=== PATIENT | male | born 1985 ===

== ENCOUNTER 2020-01-30 19:45 | Emergency (ER) | payer MEDICAID, SELFPAY ==
[2020-01-30 19:54] VITALS: BP 131/85; PULSE 92; RESP 16; TEMP 37.3; O2SAT 99; BMI 31.1
--- NOTE | 2020-01-30 21:28 | ECG_ITS ---
Test Reason : ANXIETY Blood Pressure : / mmHG Vent. Rate : 067 BPM Atrial Rate : 067 BPM P-R Int : 130 ms QRS Dur : 088 ms QT Int : 392 ms P-R-T Axes : 051 049 038 degrees QTc Int : 414 ms Normal sinus rhythm with sinus arrhythmia RSR' or QR pattern in V1 suggests right ventricular conduction delay Otherwise normal ECG When compared with ECG of 20-APR-2018 12:17, No significant change was found Referred By: Vicente Garay Electronically Signed By:OLIVERIO THOMAS MD
[2020-01-30] MEDS: chlordiazePOXIDE HCl 25 MG CAPSULE 50 MG PO (21:47)
--- NOTE | 2020-01-30 21:53 | PC.NURSE ---
LABS BEING OBTAINED AT THIS TIME. MEDICATED ORDERED WITH LIBRIUM. WILL CONTINUE TO MONITOR.
[2020-01-30 22:00] VITALS: BP 120/77; PULSE 77; RESP 14; TEMP 37.1
[2020-01-30 22:04] LABS: Basophils Percent Auto 0.3 % (0-2); Eosinophils Absolute Auto 0.1 X10*3/uL (0.0-0.4); Eosinophils Percent Auto 1.7 % (0-4); Hematocrit 44.6 % (42-52); Hemoglobin 15.4 g/dl (14.0-18.0); Imm Gran Abs Auto 0.01 X10*3/uL (0.00-0.03); Imm Gran Pct Auto 0.2 % (0.0-0.4); Lymphocytes Absolute Auto 2.2 X10*3/uL (1.2-4.9); Lymphocytes Percent Auto 36.9 % (20-40); Mean Corpuscular HGB Conc 34.5 g/dl (31.0-36.0); Mean Platelet Volume 11.3 fL (9.4-12.4); Monocytes Absolute Auto 0.4 X10*3/uL (0.1-1.2); Monocytes Percent Auto 6.7 % (2-11); Neutrophils Absolute Auto 3.2 X10*3/uL (2.0-8.3); Neutrophils Percent Auto 54.2 % (45-73); Platelet Count 247 X10*3/uL (160-400); Red Blood Count 5.31 X10*6/uL (4.60-5.80); Red Cell Distribution Width 12.3 % (11.0-16.0); White Blood Count 5.9 X10*3/uL (4.8-10.8)
[2020-01-30 22:05] LABS: MANUAL DIFF FLAG NO
[2020-01-30 22:31] LABS: Alanine Aminotransferase 66 U/L (0-40); Albumin Level 4.7 g/dL (3.5-5.0); Alkaline Phosphatase 98 U/L (39-117); Anion Gap 13 (12-20); Aspartate Amino Transferase 37 U/L (5-37); Bilirubin Total 0.6 mg/dL (0.0-1.0); Blood Urea Nitrogen 10 mg/dL (9-16); Calcium 9.7 mg/dL (8.4-10.2); Carbon Dioxide 25 mmol/L (22-29); Chloride 102 mmol/L (96-108); Creatinine Clr Calc Pharmacy 116.6; Estimated Glomerular Filt Rate > 60; Glucose Random 84 mg/dL (60-115); Potassium 4.1 mmol/l (3.3-5.1); Sodium 136 mmol/L (135-145); Total Protein 7.2 g/dL (6.5-8.0)
[2020-01-30 22:34] LABS: Troponin-I High Sensitivity < 3.5 ng/L (<3.5-35.0)
--- NOTE | 2020-01-30 22:48 | ED.GENADULT ---
HPI - General Adult General Chief complaint: Anxiety Stated complaint: Anxiety Time Seen by Provider: 01/30/20 21:19 Source: patient Mode of arrival: ambulatory Limitations: no limitations History of Present Illness HPI narrative: patient presents to ED for palpitations and night sweats and mild shaking of extremities and feeling anxious since having last drink 3 nights ago. patient states has tried to go cold turkey in the past. patient he has stopped drinking. Patient states usually he drinks half a pint a day. Patient presently denies any chest pain, shortness of breath, coughing, fever, chills, chest pain on inspiration, Related Data Previous Rx's Medication Instructions Recorded chlordiazepoxide HCl 50 mg PO Q8H PRN #11 cap 01/31/20 Allergies Allergy/AdvReac Type Severity Reaction Status Date / Time No Known Allergies Allergy Verified 01/31/20 00:01 Review of Systems Review of Systems: Yes all other systems are reviewed and are negative Constitutional: Constitutional: Reports as per HPI and Reports no additional constitutional complaints Eyes: Eyes: Reports as per HPI and Reports no additional eye complaints ENT: Reports system reviewed and no additional complaints, except as documented and Reports as per HPI Cardiovascular: Cardiovascular: Reports as per HPI, Reports no additional cardiovascular complaints, Denies chest pain, Denies chest pain at rest, Denies chest pain with activity, Denies Epigastric Pain, Denies dyspnea, Denies dyspnea on exertion, Denies orthopnea and Denies paroxysmal nocturnal dyspnea Comments: palpitation Respiratory: Respiratory: Reports as per HPI, Reports no additional respiratory complaints, Denies dyspnea and Denies dyspnea on exertion Gastrointestinal: Gastrointestinal: Reports as per HPI and Reports no additional gastrointestinal complaints Musculoskeletal: Musculoskeletal: Reports no additional musculoskeletal complaints and Reports as per HPI Neurologic: Reports system reviewed and no additional complaints, except as documented and Reports as per HPI Psychiatric: Psychiatric: Reports no additional psychiatric complaints and Reports as per HPI Endocrine: Endocrine: Reports no additional endocrine complaints and Reports as per HPI PMF Past Medical History Medical History (Updated 01/30/20 @ 23:51 by UMESH Davis) Agoraphobia Anxiety Chronic back pain Depression Migraine Surgical History (Updated 01/30/20 @ 19:58 by Barbara Flowers) Hx of removal of cyst Social History Social History Advance Directives: No Physical Exam Vital Signs: Vital Signs: Last Vital Signs Temp 98.8 F 01/30/20 22:00 Pulse 77 01/30/20 22:00 Resp 14 01/30/20 22:00 BP 120/77 01/30/20 22:00 Pulse Ox 99 01/30/20 19:54 Body Mass Index 31.1 Const: General: cooperative, healthy appearing, comfortable, no acute distress, well developed, alert and awake Orientation/consciousness: patient oriented x3 HENMT: Head: Yes normal to inspection and Yes No palpable skull fracture present Eyes: General: appearance normal, both eyes and all related structures Neck: Neck: Yes normal visual inspection, Yes full ROM, Yes no lymphadenopathy, Yes no meningeal signs, Yes trachea midline, Yes supple and No tender Chest: Chest palpation & inspection: normal inspection of the chest, normal palpation of entire chest wall and no localized rib tenderness Resp: Effort & Inspection: normal respiratory effort and able to speak in complete sentences Cardio: Jugular venous distension: no JVD Heart sounds: S1 normal heart sound present and S2 normal heart sound present GI: Inspection: Yes normal to inspection and No abdominal wall ecchymosis : General: Yes CVA tenderness and Yes no CVA tenderness Back/Spine/Pelvis: Back: no CVA tenderness, CVA tenderness and No back tenderness Skin: General skin exam: no rashes or lesions noted Neuro: General: patient oriented x3, gait normal, no meningeal signs and CN's II-XI intact bilaterally Cranial nerves: Yes CN's II-XII intact bilaterally Extrem: Other: presently patient is not having any tremors. Psych: Other: Anxious Appearance: grossly normal and well kempt Course Course Course Narrative: history physical exam indicate slight alcohol withdrawal. Due to due to patient's history of alcohol abuse and not having a drink within the past 3 days he will have EKG does not make sure is not in atrial fibrillation to indicate holiday heart. Patient will also have troponin make sure not LA after 3 days of tremors & heart palpitations. Patient denies ever having chest pain. Patient presently denies having chest pain in the ED. No indication for chest x-ray. not suspecting PE. Patient will be given Librium Reevaluation(s) Reevaluation #1: patient's troponin is negative. Patient's EKG is normal and negative for atrial fibrillation. Patient labs normal. Patient feels better after receiving librium. Time: 21:55 Reevaluation #2: patient magnesium came back normal. Patient given list of detox program to call to get treatment for alcohol abuse. Patient presently safe for discharge. Patient prescribed librium. Vital signs stable. Time: 23:49 Medical Decision Making MDM Narrative Medical decision making narrative: palpitations. Alcohol withdrawal Lab Data Result diagrams: 01/30/20 21:55 01/30/20 21:55 Labs: Lab Results 01/30/20 01/30/20 01/30/20 Range/Units 21:55 21:55 21:55 WBC 5.9 (4.8-10.8) X10*3/uL RBC 5.31 (4.60-5.80) X10*6/uL Hgb 15.4 (14.0-18.0) g/dl Hct 44.6 (42-52) % MCV 84.0 (80-98) fL MCH 29.0 (27.0-33.0) pg MCHC 34.5 (31.0-36.0) g/dl RDW 12.3 (11.0-16.0) % Plt Count 247 (160-400) X10*3/uL MPV 11.3 (9.4-12.4) fL Immature Gran % (Auto) 0.2 (0.0-0.4) % Neut % (Auto) 54.2 (45-73) % Lymph % (Auto) 36.9 (20-40) % Mcintosh % (Auto) 6.7 (2-11) % Eos % (Auto) 1.7 (0-4) % Baso % (Auto) 0.3 (0-2) % Lymph # (Auto) 2.2 (1.2-4.9) X10*3/uL Mcintosh # (Auto) 0.4 (0.1-1.2) X10*3/uL Eos # (Auto) 0.1 (0.0-0.4) X10*3/uL Baso # (Auto) 0.0 (0.0-0.2) X10*3/uL Abs Immat Gran (auto) 0.01 (0.00-0.03) X10*3/uL Absolute Neuts (auto) 3.2 (2.0-8.3) X10*3/uL Absolute Nucleated RBC 0.000 (0.0-0.012) X10*3/uL Nucleated RBC % (auto) 0.0 (0.0-0.2) /100WBC Sodium 136 (135-145) mmol/L Potassium 4.1 (3.3-5.1) mmol/l Chloride 102 (96-108) mmol/L Carbon Dioxide 25 (22-29) mmol/L Anion Gap 13 (12-20) BUN 10 (9-16) mg/dL Creatinine 0.81 (0.5-1.4) mg/dL Estim Creat Clear Calc 116.6 Estimated GFR > 60 Random Glucose 84 (60-115) mg/dL Calcium 9.7 (8.4-10.2) mg/dL Magnesium 2.2 (1.6-2.6) mg/dL Total Bilirubin 0.6 (0.0-1.0) mg/dL AST 37 (5-37) U/L ALT 66 H (0-40) U/L Alkaline Phosphatase 98 (39-117) U/L Troponin I High Sens < 3.5 (<3.5-35.0) ng/L Total Protein 7.2 (6.5-8.0) g/dL Albumin 4.7 (3.5-5.0) g/dL ECG Data Interpretation: normal sinus rhythm. Normal EKG. Ventricular rate 67. Pr interval 130. QRS 88. QTC 414 Discharge Plan Discharge Clinical Impression: Heart palpitations, Alcohol withdrawal Patient Disposition: Home, Self-Care Instructions: Heart Palpitations (ED), Alcohol Withdrawal (ED) Additional Instructions: return to ED for any chest pain, shortness of breath, fever, chills, severe tremors of extremities, nausea, vomiting, diarrhea, any other concerning symptoms. Please follow-up with any detox center on list I gave you for follow-up Prescriptions: New chlordiazepoxide HCl 25 mg capsule 50 mg PO Q8H PRN (Reason: alcohol withdrawal) Qty: 11 RF: 0 Interventions: ED Discharge Assessment Last Done: 01/30/20 23:53 Discharge Date/Time: 01/31/20 00:00 Print Language: Chinese
[2020-01-30 23:21] LABS: Magnesium 2.2 mg/dL (1.6-2.6)
== END 2020-01-31 | disposition home or self-care (01) ==
PROVIDERS: Physician Assistant; Emergency Provider Internal Medicine; PCP Family Medicine
DX: F10.239 Alcohol dependence with withdrawal, unspecified (principal); R00.2 Palpitations; F41.1 Generalized anxiety disorder; F43.0 Acute stress reaction; Y90.9 Presence of alcohol in blood, level not specified; Z79.899 Other long term (current) drug therapy
CPT/HCPCS: 36415; 80053; 83735; 84484; 85025; 93005; 99283

== ENCOUNTER 2020-06-25 23:23 | Emergency (ER) | payer MEDICAID, SELFPAY ==
[2020-06-25 23:59] VITALS: BP 114/68; PULSE 88; RESP 16; TEMP 37.2; O2SAT 98; BMI 30.5
--- NOTE | 2020-06-26 00:12 | ED.DENTAL ---
HPI - Dental/Oral General Chief complaint: Dental/Oral Stated complaint: DENTAL PAIN Time Seen by Provider: 06/26/20 00:03 Source: patient Mode of arrival: ambulatory Limitations: no limitations History of Present Illness HPI Narrative: 35-year-old male presents with dental pain and multiple caries. States that has had multiple appointments for tooth extraction however was unable to make it because of COVID-19. He has been taking Motrin 800 mg every 6 hours, Tylenol a 1000 mg every 8 hours, Orajel, has been using mouthwash to help with pain all with poor effect. He does have an appointment on Friday with oral surgery. He has pain when eating or drinking, is able to open and close his mouth without difficulty, and able to swallow secretions. He denies fevers, chills, throat pain, change in voice, ear pain, eye pain, chest pain or pressure, palpitations, shortness breath, abdominal pain, abdominal distention, dysuria, hematuria, and any other concerning symptoms. MD Complaint: tooth pain Onset (ago): week(s) Duration: constant Severity: severe Severity scale (1-10): 10 Relieving factors: NSAIDs Exacerbating factors: chewing, cold, heat and drinking fluids Context: history of dental caries and poor dental care Associated symptoms: gum swelling Treatment prior to arrival: topical analgesic and oral analgesic Related Data Previous Rx's Medication Instructions Recorded chlordiazepoxide HCl 50 mg PO Q8H PRN #11 cap 01/31/20 amoxicillin-pot clavulanate 1 tab PO Q12H 10 Days #20 tab 06/26/20 [Augmentin] oxycodone 5 mg PO Q8H PRN #7 tab 06/26/20 Allergies Allergy/AdvReac Type Severity Reaction Status Date / Time No Known Allergies Allergy Verified 01/31/20 00:01 Review of Systems Review of Systems: Constitutional: No Fever, No Chills ENT/Mouth: No swallowing difficulty, no change in voice, positive dental pain, positive jaw pain, positive facial swelling Eyes: No Eye Pain, No Swelling Cardiovascular: No Chest Pain, No SOB Respiratory: No Cough, No Sputum, No Wheezing, No Smoke Exposure, No Dyspnea Gastrointestinal: No Nausea, No Vomiting, No Diarrhea Genitourinary: No Dysuria Musculoskeletal: No Myalgias Skin: No rash Neuro: No Weakness, No Numbness, No Headache Yes all other systems are reviewed and are negative [facility] Past Medical History Attestation statement: The following information was validated with the patient. Source: old records reviewed Medical History (Updated 06/26/20 @ 00:11 by Betty Cota NP) Agoraphobia Anxiety Chronic back pain Depression Migraine Surgical History Hx of removal of cyst Social History Social History Advance Directives: No Advance Directives Information Provided: No Physical Exam Vital Signs: Vital Signs: Last Vital Signs Temp 98.9 F 06/25/20 23:59 Pulse 88 06/25/20 23:59 Resp 16 06/25/20 23:59 BP 114/68 06/25/20 23:59 Pulse Ox 98 06/25/20 23:59 Body Mass Index 30.5 Appearance: Alert. Oriented X3. Moderate distress. Eyes: Pupils equal, round and reactive to light. ENT: Pharynx normal. Multiple dental caries visible pulp inside the broken molars on the right lower jaw. Neck: Normal inspection. Neck supple. No lymphadenopathy noted. CVS: Normal heart rate and rhythm. Pulses normal. Respiratory: No respiratory distress. Lung sounds clear to auscultation all lobes. Abdomen: Soft and nontender. Skin: Skin warm and dry. Normal skin color. Normal skin turgor. Extremities: No lower extremity edema. Moves all extremities against resistance, gait well balanced well coordinated. Neuro: No motor deficit. No sensory deficit. Cranial nerves 2-12 intact. Course Course Course Narrative: 35-year-old male presents with multiple dental caries and abscess. Has been taking an excessive amount of [id number] over the past several days, patient educated on proper dosage of Tylenol and Motrin. Will give narcotic analgesic and Augmentin. Patient will follow up with his oral surgeon on Friday. Patient verbalized understanding of and agrees plan of care discharge home. MDM - Dental/Oral Differential Diagnosis Differential diagnosis: Likely gingival abscess, dental caries, toothache and dental abscess Medical Records Attestation: I reviewed the patient's medical records. Discharge Plan Discharge Clinical Impression: Toothache, Dental caries Patient Disposition: Home, Self-Care Instructions: Dental Abscess (ED), Toothache (ED) Additional Instructions: You were evaluated for dental caries in tooth ache. Please follow-up with dental surgery tomorrow. I prescribed oxycodone for pain management. This medication is a narcotic and has high risk for addiction and abuse. Do not drive or operate machinery while taking this medication. This medication can increase risk for falls, cause drowsiness, and constipation. Drink plenty of fluids, use MiraLax and Colace as needed for stool softening. Please take her Augmentin as prescribed. This medication is an antibiotic. Thank you for choosing this emergency department for evaluation. Please follow-up with primary care physician as needed. Return to the emergency department for any new, concerning, or worsening symptoms. Prescriptions: New oxycodone 5 mg tablet 5 mg PO Q8H PRN (Reason: pain) Qty: 7 RF: 0 amoxicillin-pot clavulanate [Augmentin] 875-125 mg tablet 1 tab PO Q12H 10 Days Qty: 20 RF: 0 No Action chlordiazepoxide HCl 25 mg capsule 50 mg PO Q8H PRN (Reason: alcohol withdrawal) Qty: 11 RF: 0 Interventions: ED Discharge Assessment Last Done: 06/26/20 01:05 Discharge Date/Time: 06/26/20 01:06
[2020-06-26] MEDS: oxyCODONE HCl Immed Release 5 MG TABLET PO (01:04)
[2020-06-26] MEDS: Amoxicillin/Potassium Clav 875 MG TABLET PO (01:04)
== END 2020-06-26 01:06 | disposition home or self-care (01) ==
PROVIDERS: Emergency Provider Emergency Medicine; PCP Family Medicine
DX: K02.9 Dental caries, unspecified (principal); Z79.899 Other long term (current) drug therapy
CPT/HCPCS: 99283

== ENCOUNTER 2020-11-08 22:50 | Emergency (ER) | payer MEDICAID, SELFPAY ==
[2020-11-08 22:55] VITALS: BP 127/90; PULSE 81; RESP 16; TEMP 36.2; O2SAT 98; BMI 29.2
--- NOTE | 2020-11-08 23:08 | ED.GENADULT ---
HPI - General Adult General Chief complaint: General Medical Stated complaint: Alcohol withdrawals Time Seen by Provider: 11/08/20 23:08 Source: patient Mode of arrival: ambulatory Limitations: no limitations History of Present Illness HPI narrative: Patient alcoholic drinks beer never been to detox. Had lot of beer 3 days ago none for last 3 days feel anxious and in withdrawal unable to eat much no vomiting denies any hallucination or delusion. Patient also have a history of anxiety Related Data Previous Rx's Medication Instructions Recorded chlordiazepoxide HCl 25 mg capsule 50 mg PO Q8H PRN #11 cap 01/31/20 amoxicillin 875 mg-potassium 1 tab PO Q12H 10 Days #20 tab 06/26/20 clavulanate 125 mg tablet (Augmentin) oxycodone 5 mg tablet 5 mg PO Q8H PRN #7 tab 06/26/20 chlordiazepoxide HCl 25 mg capsule 25 mg PO Q8H #14 cap 11/08/20 Allergies Allergy/AdvReac Type Severity Reaction Status Date / Time No Known Allergies Allergy Verified 01/31/20 00:01 Review of Systems Review of Systems: Constitutional : No Weight loss, No Fever, No Chills ENT/Mouth : No sore throat, No Rhinorrhea Eyes: No Eye Pain, No Swelling Cardiovascular : No Chest Pain, no palpitations Respiratory : No Cough, No Sputum, no shortness of breath Gastrointestinal : + Nausea, No Vomiting, No Diarrhea, No abdominal Pain, no black stools Genitourinary : No Dysuria, No Urinary Frequency Musculoskeletal : No joint pain, No Myalgias, No Joint Swelling Skin : No Skin Lesions, No rash Neuro : No Weakness, No Numbness, No Dizziness, No Headache Psych : ++ Anxiety/Panic, No Depression Heme/Lymph: No Bruising, No Lymphadenopathy Endocrine : No Polyuria, No Polydipsia All other systems reviewed and are negative [facility] Past Medical History Medical History Agoraphobia Anxiety Chronic back pain Depression Migraine Surgical History Hx of removal of cyst Social History Social History Advance Directives: No Advance Directives Information Provided: Yes Physical Exam Vital Signs: Vital Signs: Last Vital Signs Temp 97.2 F 11/08/20 22:55 Pulse 81 11/08/20 22:55 Resp 16 11/08/20 22:55 BP 127/90 H 11/08/20 22:55 Pulse Ox 98 11/08/20 22:55 Body Mass Index 29.2 Appearance: Alert. Oriented X3. No acute distress. Anxious Eyes: PERRLA, No Nystagmus ENT: Pharynx normal. Oral Mucosa moist Neck: Normal inspection. Neck supple. CVS: Normal heart rate and rhythm. Pulses normal. Respiratory: No respiratory distress. Equal air entry bilateral, no wheezing/rales/rhonchi Abdomen: Soft and nontender. Bowel sounds are present, no mass palpable, no CVA tenderness Skin: Skin warm and dry. Normal skin color. Normal skin turgor. Extremities: No lower extremity edema. No calf tenderness Neuro: Oriented X 3. No motor deficit. No sensory deficit.No cerebellar signs , cranial nerves II-XII intact Medical Decision Making MDM Narrative Medical decision making narrative: Patient had p.o. fluids and food in the ER feel better after Librium will discharge patient home advised to follow-up with detox Discharge Plan Discharge Clinical Impression: Alcohol withdrawal Qualifiers: Complication of substance-induced condition: uncomplicated Qualified Code(s): F10.230 - Alcohol dependence with withdrawal, uncomplicated Patient Disposition: Home, Self-Care Instructions: Alcohol Withdrawal (ED) Additional Instructions: Drink plenty of fluids Librium as advised and follow up with detox Prescriptions: New chlordiazepoxide HCl 25 mg capsule 25 mg PO Q8H Qty: 14 RF: 0 No Action chlordiazepoxide HCl 25 mg capsule 50 mg PO Q8H PRN (Reason: alcohol withdrawal) Qty: 11 RF: 0 oxycodone 5 mg tablet 5 mg PO Q8H PRN (Reason: pain) Qty: 7 RF: 0 amoxicillin-pot clavulanate [Augmentin] 875-125 mg tablet 1 tab PO Q12H 10 Days Qty: 20 RF: 0
[2020-11-08] MEDS: chlordiazePOXIDE HCl 25 MG CAPSULE 50 MG PO (23:24)
== END 2020-11-09 00:27 | disposition home or self-care (01) ==
PROVIDERS: Emergency Provider Internal Medicine; PCP Family Medicine
DX: F41.9 Anxiety disorder, unspecified (principal); F10.230 Alcohol dependence with withdrawal, uncomplicated; Y90.9 Presence of alcohol in blood, level not specified; Z79.899 Other long term (current) drug therapy
CPT/HCPCS: 99283; 99284

== ENCOUNTER 2022-07-09 01:36 | Emergency (ER) | payer MEDICAID, SELFPAY ==
--- NOTE | 2022-07-09 | ECG_ITS ---
Test Reason : allergic reaction Blood Pressure : / mmHG Vent. Rate : 085 BPM Atrial Rate : 085 BPM P-R Int : 130 ms QRS Dur : 082 ms QT Int : 358 ms P-R-T Axes : 077 059 050 degrees QTc Int : 426 ms Normal sinus rhythm Normal ECG When compared with ECG of 30-JAN-2020 22:04, No significant change was found Referred By: Generic ED Physician Electronically Signed By:ADALID GARG MD
--- NOTE | 2022-07-09 01:44 | ED.ALLEREA ---
HPI - Allergic Reaction General Stated complaint: allergic reaction Time Seen by Provider: 07/09/22 01:44 Source: patient Mode of arrival: EMS Limitations: no limitations History of Present Illness HPI narrative: Patient comes to the emergency room complaining of an allergic reaction to Motrin. Patient states that he takes Motrin for muscular pain on his chest. Today, around 22:00, patient took ibuprofen, minutes after patient started complaining foreign body sensation in his throat, hives in upper lower extremities. Patient was able to take 12.5 mg of Benadryl. And called 911. Related Data Previous Rx's Medication Instructions Recorded chlordiazepoxide HCl 25 mg capsule 50 mg PO Q8H PRN alcohol 01/31/20 withdrawal #11 caps amoxicillin 875 mg-potassium 1 tab PO Q12H 10 days #20 tabs 06/26/20 clavulanate 125 mg tablet (Augmentin) oxycodone 5 mg tablet 5 mg PO Q8H PRN pain #7 tabs 06/26/20 chlordiazepoxide HCl 25 mg capsule 25 mg PO Q8H #14 caps 11/08/20 Allergies Allergy/AdvReac Type Severity Reaction Status Date / Time No Known Allergies Allergy Verified 01/31/20 00:01 Review of Systems Review of Systems: Constitutional : No Weight loss, No Fever, No Chills, No Night Sweats, No Fatigue, No Malaise ENT/Mouth : Complaining of difficulty swallowing and foreign body sensation, No Hearing loss, No Ear Pain, No Nasal Congestion, No Sinus Pain, No Hoarseness, No sore throat, No Rhinorrhea, Eyes: No Eye Pain, No Swelling, No Redness, No Foreign Body, No Discharge, No Vision Changes Cardiovascular : No Chest Pain, No SOB, No Dyspnea on Exertion, No Orthopnea, No Edema, No Palpitations Respiratory : No Cough, No Sputum, No Wheezing, No Smoke Exposure, No Dyspnea Gastrointestinal : No Nausea, No Vomiting, No Diarrhea, No Constipation, No abdominal Pain, No Hematochezia, No Melena Genitourinary : no irregular bleeding, No Dysuria, No Urinary Frequency, No Hematuria, No Urinary Incontinence, No Urgency, No Flank Pain, No Urinary Flow Changes, No Hesitancy Musculoskeletal : No joint pain, No Myalgias, No Joint Swelling Skin : Complaining of hives in upper lower extremities Neuro : No Weakness, No Numbness, No Paresthesias, No Loss of Consciousness, No Dizziness, No Headache Psych : No Anxiety/Panic, No Depression, No SI/HI/AH/VH, No Social Issues, Heme/Lymph: No Bruising, No Bleeding,No Lymphadenopathy Endocrine : No Polyuria, No Polydipsia, No Temperature Intolerance [facility] Past Medical History Medical History Agoraphobia Anxiety Chronic back pain Depression Migraine Surgical History Hx of removal of cyst Physical Exam ED Const Other: Appearance: Alert. Oriented X3. No acute distress. Eyes: Pupils equal, round and reactive to light. ENT: Pharynx normal. Neck: Normal inspection. Neck supple. No lymph nodes noted. No crepitus CVS: Normal heart rate and rhythm. Pulses normal. Normal S1 and S2 Respiratory: No respiratory distress. Breath sounds normal. No Wheezing. No rales Abdomen: Soft and nontender. No rigidity. No distention. Skin: Skin warm and dry. Normal skin color. Normal skin turgor. Extremities: No lower extremity edema. No Lacerations. No Rash Neuro: Oriented X 3. No motor deficit. No sensory deficit. Moving all extremities. No slurred speech. CN 2 through 12 grossly intact Psych: calm, cooperative, normal affect Course Course Course Narrative: -on arrival, patient speaking in full sentences, no angioedema, no hives. -patient receiving 1 dose of IV Solu-Medrol, Pepcid, Benadryl and IV fluids -anticipating patient to go home. At this time, patient is stable -sign-out given to Dr. Kingsley Medical Decision Making Differential Diagnosis Differential Diagnoses: The differential diagnosis associated with the presentation includes (Allergic reaction, angioedema) Critical Care Time Critical Care Time Critical Care Time: Yes Total Critical Care Time: 30 Attestation: I have personally provided critical care time. Time includes review of lab data, radiology results, discussion with consultants, and monitoring for potential decompensation. Intervention performed as documented. Discharge Plan Discharge Clinical Impression: Allergic reaction Patient Disposition: Home, Self-Care Instructions: General Allergic Reaction (ED) Additional Instructions: Please follow-up with your primary care physician tomorrow. If you have any worsening or new symptoms, please return to the emergency room or call 911 Prescriptions: No Action chlordiazepoxide HCl 25 mg capsule 50 mg PO Q8H PRN (Reason: alcohol withdrawal) Qty: 11 0RF Rx Instructions: day 1 take 50 mg b.i.d.. Day 2 take 25 mg every 6 hours. states 3 take 25 mg b.i.d. day 4 take 25 mg at bedtime chlordiazepoxide HCl 25 mg capsule 25 mg PO Q8H Qty: 14 0RF oxycodone 5 mg tablet 5 mg PO Q8H PRN (Reason: pain) Qty: 7 0RF amoxicillin-pot clavulanate [Augmentin] 875-125 mg tablet 1 tab PO Q12H 10 Days Qty: 20 0RF
[2022-07-09 01:45] VITALS: BP 121/77; PULSE 92; RESP 10; TEMP 36.6; O2SAT 99
[2022-07-09 01:49] VITALS: BP 121/77; BP 142/80; PULSE 88; RESP 16; TEMP 36.6; O2SAT 99; BMI 22.9
[2022-07-09] MEDS: 0.9 % Sodium Chloride 1,000 ML 999 ML IVCONT (02:09)
[2022-07-09] MEDS: diphenhydrAMINE HCL 50 MG/ML VIAL IVPUSH (02:10)
[2022-07-09] MEDS: Famotidine/PF 20 MG/2 ML VIAL IVPUSH (02:10)
[2022-07-09] MEDS: methylPREDNISolone Sod Succ 125 MG/2 ML VIAL IVPUSH (02:10)
[2022-07-09 03:29] VITALS: BP 107/60; PULSE 99; RESP 12; TEMP 36.8; O2SAT 98
--- NOTE | 2022-07-09 04:00 | PC.NURSE ---
pt a&o, no sob or chest pain, no hives, no facial swelling, pt able to speak in full sentence, no sign of distress. Reviewed discharge instructions. pt verbalized understanding.
== END 2022-07-09 04:01 | disposition home or self-care (01) ==
PROVIDERS: Emergency Provider Emergency Medicine
DX: L50.0 Allergic urticaria (principal); R94.31 Abnormal electrocardiogram [ECG] [EKG]; Z79.899 Other long term (current) drug therapy
CPT/HCPCS: 93005; 96374; 96375; 99284; 99285; J1200; J2930

== ENCOUNTER 2022-07-14 02:13 | Emergency (ER) | payer MEDICAID, SELFPAY ==
[2022-07-14 02:21] VITALS: BP 130/82; BP 131/72; PULSE 116; PULSE 99; RESP 19; TEMP 36.4; O2SAT 96; O2SAT 97; BMI 23.8
--- NOTE | 2022-07-14 06:38 | ED.GENADULT ---
HPI - General Adult General Chief complaint: General Medical Stated complaint: DIFFICULTY SWALLOWING Time Seen by Provider: 07/14/22 06:34 Source: patient Mode of arrival: ambulatory Limitations: no limitations History of Present Illness HPI narrative: Patient is a 37-year-old male with history of anxiety, depression, agoraphobia, and migraines presenting with scratchiness in his throat since early this morning as well as the headache. He was seen here 07/09 for an allergic reaction to ibuprofen. He states he has not taken any ibuprofen since that time. He reports he has been able to tolerate water and has also been managing his secretions. He denies any swelling to his lips, tongue, throat. He denies any rashes or hives. He denies any abdominal pain. He denies any chest pain or shortness of breath. Related Data Previous Rx's Medication Instructions Recorded chlordiazepoxide HCl 25 mg capsule 50 mg PO Q8H PRN alcohol 01/31/20 withdrawal #11 caps amoxicillin 875 mg-potassium 1 tab PO Q12H 10 days #20 tabs 06/26/20 clavulanate 125 mg tablet (Augmentin) oxycodone 5 mg tablet 5 mg PO Q8H PRN pain #7 tabs 06/26/20 chlordiazepoxide HCl 25 mg capsule 25 mg PO Q8H #14 caps 11/08/20 epinephrine 0.3 mg/0.3 mL 0.3 mg (0.3 mL) IM Q4H PRN 07/09/22 injection, auto-injector (EpiPen) anaphylaxis #2 ea Allergies Allergy/AdvReac Type Severity Reaction Status Date / Time ibuprofen Allergy Hives Verified 07/14/22 02:28 Review of Systems Review of Systems: As per HPI Yes all other systems are reviewed and are negative Constitutional: Constitutional: Reports as per HPI [facility] Past Medical History Medical History Agoraphobia Anxiety Chronic back pain Depression Migraine Surgical History Hx of removal of cyst Social History Social History Advance Directives: No Advance Directives Information Provided: Yes Physical Exam ED Vital Signs: Vital Signs - 24 hr 07/14/22 02:21 Temperature 97.5 F Pulse Rate 99 Respiratory Rate 19 Blood Pressure 131/72 Pulse Oximetry 96 Oxygen Delivery Method Room Air BMI result Body Mass Index 23.8 Const General: cooperative, healthy appearing and no acute distress Orientation/consciousness: oriented to person, oriented to place, oriented to time and patient oriented x3 Limitations: no limitations [facility] Head: Yes normocephalic and Yes atraumatic Ears: external ears normal General nose exam: Normal external nose present Face and sinus: Yes face symmetric Mouth: Normal oral and palatal mucosa present, oropharynx normal, moist mucous membranes and No restricted motion Teeth and gingiva: abnormal tooth and associated gingiva and poor dentition Throat: Yes posterior oropharynx normal, Yes tonsils normal, Yes uvula midline and No uvular edema Eyes Pupils: Equal, round and reactive pupils present Neck Neck: Yes normal visual inspection and Yes supple Resp Effort & Inspection: normal respiratory effort and able to speak in complete sentences Auscultation: clear to auscultation bilaterally Cardio Rate: regular rate Rhythm: regular rhythm Heart sounds: S1 normal heart sound present and S2 normal heart sound present GI Palpation (GI): Soft to palpation and nontender Auscultation: normoactive bowel sounds General: Yes no CVA tenderness Back/Spine/Pelvis Back: no CVA tenderness Skin General skin exam: elasticity normal and turgor normal Neuro General: oriented to person, oriented to place, oriented to time, patient oriented x3, moves all extremities, no focal motor deficits and CN's II-XI intact bilaterally Cranial nerves: Yes Equal, round and reactive pupils present Cognition (Neuro): normal cognition Extrem General: Yes full ROM, Yes no pedal edema and Yes no calf tenderness Psych Mental Status: mental status grossly normal Affect: normal affect Thought process: Normal thought process present Medical Decision Making Medical Decision Making MDM Narrative: Patient is a 37-year-old male with history of anxiety, depression, agoraphobia, and migraines presenting with scratchiness in his throat since early this morning as well as the headache. On exam patient is nontoxic appearing, alert and oriented without focal neurological deficits, vital signs within normal limits, afebrile, managing secretions, able to swallow water and applesauce without difficulty, no erythema or edema to oropharynx, uvula midline. Concern for esophagitis related to chronic ibuprofen use, esophageal or peptic stricture, eosinophilic esophagitis, esophageal web or ring. Lower concern for malignancy/mass, vascular abnormality, anaphylaxis, or motility disorder. Given that patient is able to manage his secretions and eat/drink without difficulty, will discharge home with GI referral and strict return precautions. Advised he can utilize liquid forms of Tylenol as needed for headaches. Plan: PO trial and discharge home with referral to GI. Differential Diagnosis Differential Diagnoses: The differential diagnosis associated with the presentation includes As above. External Record Review External record reviewed: Inpatient record, Office record and Outpatient record Discharge Plan Discharge Clinical Impression: Esophagitis Patient Disposition: Home, Self-Care Instructions: Esophagitis (ED) Additional Instructions: You were evaluated in the emergency department today for throat irritation. Your evaluation suggests your symptoms are likely due to esophagitis. You are being referred to GI for further evaluation. You can use liquid/Children's Tylenol as needed for your headaches. You should begin by eating soft, cold foods such as pudding, Jell-O, applesauce, room temperature soup and progress your diet as tolerated. Return to the emergency department if you experience worsening or uncontrolled pain, are unable to swallow your own saliva, you developed tongue swelling, change in her voice, difficulty breathing, fevers 100.4? F or greater, recurrent vomiting or other concerning symptoms. Prescriptions: No Action chlordiazepoxide HCl 25 mg capsule 50 mg PO Q8H PRN (Reason: alcohol withdrawal) Qty: 11 0RF Rx Instructions: day 1 take 50 mg b.i.d.. Day 2 take 25 mg every 6 hours. states 3 take 25 mg b.i.d. day 4 take 25 mg at bedtime chlordiazepoxide HCl 25 mg capsule 25 mg PO Q8H Qty: 14 0RF oxycodone 5 mg tablet 5 mg PO Q8H PRN (Reason: pain) Qty: 7 0RF amoxicillin-pot clavulanate [Augmentin] 875-125 mg tablet 1 tab PO Q12H 10 Days Qty: 20 0RF epinephrine [EpiPen] 0.3 mg/0.3 mL auto-injector 0.3 mg IM Q4H PRN (Reason: anaphylaxis) Qty: 2 0RF Referrals: [facility] [place] [Provider Group]
[2022-07-14 07:12] VITALS: BP 134/88; PULSE 80; RESP 16
--- NOTE | 2022-07-14 07:19 | PC.NURSE ---
this parts data writer assumed care of this pt at 0700. pt cleared for discharge at the time of assuming care.
== END 2022-07-14 07:13 | disposition home or self-care (01) ==
PROVIDERS: Emergency Provider Emergency Medicine
DX: K20.90 Esophagitis, unspecified without bleeding (principal); R13.10 Dysphagia, unspecified; R51.9 Headache, unspecified
CPT/HCPCS: 99283

== ENCOUNTER 2022-07-15 01:36 | Emergency (ER) | payer MEDICAID, SELFPAY ==
[2022-07-15 01:38] VITALS: BP 129/82; PULSE 73; RESP 16; TEMP 37; O2SAT 98; BMI 23.6
[2022-07-15 07:39] VITALS: BP 120/83; PULSE 87; RESP 12; O2SAT 99
--- NOTE | 2022-07-15 07:40 | ED_ITS ---
HPI - URI/Sore Throat General Chief Complaint: Upper Respiratory Symptoms Stated Complaint: difficulty swallowing Time Seen by Provider: 07/15/22 07:32 Source: patient Mode of arrival: ambulatory Limitations: no limitations History of Present Illness HPI Narrative: 37 yo male presents to the ER for evaluation of a worsening sore throat for the last 1 week. He states he was seen here 2 week ago for sore throat and hives, thought to be an allergic reaction to motrin. He states his hives got better but his sore throat as persisted. He feels like it is very dry, pain with swallowing similar to when he has had strep in the past. He denies any fever, chills, N/V/D or abdominal pain. He has a slight cough and runny nose, also endorses a headache. He is here with his 13 yo daughter who has similar symptoms but also has a fever. MD elicited complaint: sore throat and nasal congestion Onset (ago): week(s) (1) Consistency: progressively worsening Severity: moderate Description of mucous: clear Able to tolerate fluids by mouth: Yes Exacerbating factors: swallowing Relieving factors: OTC cold medicine Context: sick contacts Associated symptoms: headache, nasal congestion, sore throat and cough Treatments prior to arrival: none Related Data Previous Rx's Medication Instructions Recorded chlordiazepoxide HCl 25 mg capsule 50 mg PO Q8H PRN alcohol 01/31/20 withdrawal #11 caps amoxicillin 875 mg-potassium 1 tab PO Q12H 10 days #20 tabs 06/26/20 clavulanate 125 mg tablet (Augmentin) oxycodone 5 mg tablet 5 mg PO Q8H PRN pain #7 tabs 06/26/20 chlordiazepoxide HCl 25 mg capsule 25 mg PO Q8H #14 caps 11/08/20 epinephrine 0.3 mg/0.3 mL 0.3 mg (0.3 mL) IM Q4H PRN 07/09/22 injection, auto-injector (EpiPen) anaphylaxis #2 ea amoxicillin 875 mg-potassium 1 tab PO BID #20 tabs 07/15/22 clavulanate 125 mg tablet Allergies Allergy/AdvReac Type Severity Reaction Status Date / Time ibuprofen Allergy Hives Verified 07/14/22 02:28 Review of Systems Review of Systems: Yes all other systems are reviewed and are negative [facility] Past Medical History Medical History Agoraphobia Anxiety Chronic back pain Depression Migraine Surgical History Hx of removal of cyst Social History Social History Alcohol intake: never Smoked in Last 30 Days: No Use of substances other than those prescribed or required for medical reasons: No Advance Directives: No Advance Directives Information Provided: Yes Physical Exam Vital Signs: Vital Signs: Last Vital Signs Temp 98.6 F 07/15/22 01:38 Pulse 87 07/15/22 07:39 Resp 12 07/15/22 07:39 BP 120/83 07/15/22 07:39 Pulse Ox 99 07/15/22 07:39 O2 Del Method Room Air 07/15/22 07:39 BMI result Body Mass Index 23.6 Appearance: Alert. Oriented X3. No acute distress. Head: normocephalic, atraumatic. Eyes: Pupils equal, round and reactive to light. ENT: Pharynx with moist mucus membranes. +posterior pharyngeal erythema,+ tonsillar swelling and erythema without exudate. uvula midline. normal TMs bilaterally. Neck: Normal inspection. Neck supple. CVS: Normal heart rate and rhythm. Pulses normal. Respiratory: No respiratory distress. Breath sounds normal. Skin: Skin warm and dry. Normal skin color. Normal skin turgor. No rashes. Extremities: No lower extremity edema. No joint swelling. Neuro/psych: Oriented X 3. Grossly normal, nonfocal. CN II-XII intact. Normal speech and cognition. Medical Decision Making Medical Decision Making [facility] Narrative: 37-year-old male presents to ER for evaluation of 1 week of worsening sore throat. Examined clinical presentation are consistent with strep pharyngitis. Will start empiric treatment. His daughter is here with similar symptoms and her exam is also consistent with strep throat. He has no allergies to penicillin. will start amoxicillin and we also discussed [id number] remedies for symptomatic management. Stable for discharge home. Differential Diagnosis Differential Diagnoses: The differential diagnosis associated with the prese ntation includes strep, covid, flu, rsv, other viral syndrome, bronchitis, pneumonia, no evidence of peritonsillar abcsess or retropharyngeal abscess External Record Review External record reviewed: Office record, Outpatient record, Prior outpatient labs and Prior outpatient radiology Prescription Management I considered prescription management with: Pain Medication and Antibiotic Critical Care Time Critical Care Time Critical Care Time: No Discharge Plan Discharge Clinical Impression: Pharyngitis Patient Disposition: Home, Self-Care Instructions: Pharyngitis (ED) Additional Instructions: Take the prescribed antibiotic as directed. Complete the entire course and do not miss any doses. Recommend gargling with warm salt water 3 times per day. Recommend Chloraseptic spray as needed for sore throat. Make sure you are staying hydrated drinking plenty of fluids. If you develop new or worsening symptoms call 911 or come back to the ER for further evaluation. Prescriptions: New amoxicillin-pot clavulanate 875-125 mg tablet 1 tab PO BID Qty: 20 0RF No Action chlordiazepoxide HCl 25 mg capsule 50 mg PO Q8H PRN (Reason: alcohol withdrawal) Qty: 11 0RF Rx Instructions: day 1 take 50 mg b.i.d.. Day 2 take 25 mg every 6 hours. states 3 take 25 mg b.i.d. day 4 take 25 mg at bedtime chlordiazepoxide HCl 25 mg capsule 25 mg PO Q8H Qty: 14 0RF oxycodone 5 mg tablet 5 mg PO Q8H PRN (Reason: pain) Qty: 7 0RF amoxicillin-pot clavulanate [Augmentin] 875-125 mg tablet 1 tab PO Q12H 10 Days Qty: 20 0RF epinephrine [EpiPen] 0.3 mg/0.3 mL auto-injector 0.3 mg IM Q4H PRN (Reason: anaphylaxis) Qty: 2 0RF Referrals: [facility] [Primary Care Provider] - Interventions: ED Discharge Assessment Last Done: 07/15/22 08:12 Discharge Date/Time: 07/15/22 08:13
--- NOTE | 2022-07-15 08:11 | PC.NURSE ---
PT EVALUATED BY PROVIDER PT AWAKE, ALERT AND ORIENTED X 3. SKIN WARM AND DRY. RESP UNLABORED. DENIES N/V. AIRWAY PATENT. MANAGING SECRETIONS. SPEAKING IN FULL CLEAR SENTENCES. PLAN IS FOR DC HOME. PT AGREEABLE TO PLAN
== END 2022-07-15 08:13 | disposition home or self-care (01) ==
PROVIDERS: Emergency Provider Emergency Medicine
DX: J02.9 Acute pharyngitis, unspecified (principal); R13.10 Dysphagia, unspecified; R05.9 Cough, unspecified; R51.9 Headache, unspecified; Z79.899 Other long term (current) drug therapy
CPT/HCPCS: 99283; 99284

== ENCOUNTER 2022-09-23 12:53 | Emergency (ER) | payer MEDICAID, SELFPAY ==
--- NOTE | 2022-09-23 12:54 | ECG_ITS ---
Test Reason : chest pain Blood Pressure : / mmHG Vent. Rate : 078 BPM Atrial Rate : 078 BPM P-R Int : 112 ms QRS Dur : 084 ms QT Int : 370 ms P-R-T Axes : 081 060 048 degrees QTc Int : 421 ms Normal sinus rhythm with sinus arrhythmia Normal ECG When compared with ECG of 09-JUL-2022 01:47, No significant change was found Referred By: Generic ED Physician Electronically Signed By:Jeffry Garduno
[2022-09-23 14:09] VITALS: BP 118/69; PULSE 67; RESP 16; TEMP 36.5; O2SAT 98; BMI 24.7
--- NOTE | 2022-09-23 14:09 | ED_ITS ---
HPI - General Adult General Chief complaint: Chest Pain Stated complaint: feels heart skipping beats quest dehydration Time Seen by Provider: 09/23/22 17:36 Source: patient Mode of arrival: ambulatory Limitations: no limitations History of Present Illness HPI narrative: Patient is a 37-year-old male presents emergency department for evaluation of palpitations and shakiness. Palpitations have been ongoing for the past 2-3 years. He reports evaluation from Cardiology approximately 2 years ago where he had a treadmill stress test in addition to an echo both of which were normal. He denies ever having any Holter monitoring. He reports that today upon awakening he felt shaky in fatigued in addition to the palpitations which he feels high in his anxiety and is well ultimately made him come to the emergency department. He expresses concern that he may have been dehydrated. He drinks 1-2 beers daily, typically in the evening, reports last drink to be yesterday. Denies any history of alcohol withdrawal symptoms. He denies any recreational drug usage. He denies any fevers, chills, chest pain, shortness of breath, difficulty breathing, nausea, vomiting, abdominal pain, numbness or tingling, weakness. Related Data Previous Rx's Medication Instructions Recorded chlordiazepoxide HCl 25 mg capsule 50 mg PO Q8H PRN alcohol 01/31/20 withdrawal #11 caps amoxicillin 875 mg-potassium 1 tab PO Q12H 10 days #20 tabs 06/26/20 clavulanate 125 mg tablet (Augmentin) oxycodone 5 mg tablet 5 mg PO Q8H PRN pain #7 tabs 06/26/20 chlordiazepoxide HCl 25 mg capsule 25 mg PO Q8H #14 caps 11/08/20 epinephrine 0.3 mg/0.3 mL 0.3 mg (0.3 mL) IM Q4H PRN 07/09/22 injection, auto-injector (EpiPen) anaphylaxis #2 ea amoxicillin 875 mg-potassium 1 tab PO BID #20 tabs 07/15/22 clavulanate 125 mg tablet Allergies Allergy/AdvReac Type Severity Reaction Status Date / Time ibuprofen Allergy Hives Verified 09/23/22 14:09 Review of Systems Review of Systems: Constitutional: No weight loss. No fever. No chills. No weakness. Positive fatigue. Eye: No swelling. No redness. ENT: No sore throat. No rhinorrhea. No nasal congestion. No sore throat. No difficulty swallowing. Skin: No rash. No itching. Cardiovascular: No chest pain. No chest pressure. Positive palpitations. No pedal edema. Respiratory: No shortness of breath. No cough. No sputum production. Gastrointestinal: No anorexia. No nausea. No vomiting. No diarrhea. No abdominal pain. No blood in stool. Genitourinary: No burning micturition. No urinary frequency. No incontinence. Neurologic: No headache. No dizziness. No pre-syncope/ syncope. No unilateral weakness. No ataxia. No numbness. No tingling. No change in bowel or bladder control. Musculoskeletal: No muscle pain. No back pain. No joint pain. No stiffness. Hematologic: No bleeding. No bruising. Lymphatics: No enlarged lymph nodes. Psychiatric:No depression. No anxiety. Endocrine: No reports of sweating. No cold or heat intolerance. No polyuria. No polydipsia. Yes all other systems are reviewed and are negative PMFSH Past Medical History Attestation statement: The following information was validated with the patient. Source: old records reviewed Medical History Agoraphobia Anxiety Chronic back pain Depression Migraine Surgical History Hx of removal of cyst Social History Social History Alcohol intake: current Alcohol intake frequency: 0-2 drinks per day Alcohol type: beer and other Smoked in Last 30 Days: No Use of substances other than those prescribed or required for medical reasons: No Advance Directives: No Advance Directives Information Provided: Yes Physical Exam ED Vital Signs: Vital Signs - 24 hr 09/23/22 14:09 09/23/22 17:57 Temperature 97.7 F 98.8 F Pulse Rate 67 99 Respiratory Rate 16 17 Blood Pressure 118/69 131/93 H Pulse Oximetry 98 99 Oxygen Delivery Method Room Air BMI result Body Mass Index 24.7 Appearance: Alert.?Oriented to person, place and time. No acute distress.?Normal affect. Eyes: Pupils equal, round and reactive to light.? ENT: Pharynx normal.?? Neck: Normal inspection.? Neck supple.?? CVS: Heart sounds normal. Normal heart rate and rhythm.? Pulses normal.?? Respiratory: No respiratory distress.? Lung sounds clear to auscultation bilaterally?? Abdomen: Soft and non-tender. Normoactive bowel sounds. Skin: Skin warm and dry.? Normal skin color.? Extremities: No lower extremity edema.? No calf ttp? Neuro: Moves all extremities spontaneously. Sensation intact bilaterally. No focal neuro deficits. Ambulates with normal steady gait. Course Course Course Narrative: This is an RME: Additional HPI, ROS, PE not included below will be deferred to primary provider. 37 y/o M, hx of anxiety, depression, agoraphobia, and migraines, presenting to the emergency department with complaints of skipped heart beats , and feeling as though he is shaky today. He admits that last he had too much to drink , woke up hung over the next day drank gatorade and felt better. He reports that he was referred to cardiology for chest pain in the past. He states that he drinks alcohol daily - 48 oz of beer daily. Hx of alcohol withdrawal - no hx of seizure withdrawal or AH/VH from etoh withdrawal. VSS. Plan: Labs, EKG, UA ordered. Reevaluation(s) Reevaluation #1: CBC reveals no leukocytosis, no anemia. CMP is overall unremarkable, no electrolyte abnormality, no impaired renal function. Troponin <2.7, EKG revealing normal sinus rhythm. TSH consistent with hyperthyroidism, reflex free T4 and T3 are pending. I reviewed these findings with patient, recommended that he remain in the hospital for further evaluation, patient however declines at this time stating that he needs to leave. Advised patient that he would be leaving against medical advice, we discussed potential complications of untreated hyperthyroidism including those that may be life threatening, and patient verbalized understanding. He was encouraged to follow up with his primary care provider and/or return back to emergency department. He is conscious alert and oriented, competent to make his own decisions. Ambulatory in the emergency department with steady gait. Time: 18:47 Medical Decision Making Medical Decision Making MDM Narrative: Patient is a 37-year-old male with past medical history of agoraphobia, anxiety, depression, migraines, alcohol use disorder presenting to emergency department for evaluation of chronic palpitations with shakiness and anxiety Differential Diagnosis Differential Diagnoses: The differential diagnosis associated with the presentation includes (Arrhythmia, valvular disease, anxiety, medication side effect, poly substance usage, metabolic abnormality, anemia, dehydration, abnormal thyroid function) Admission/Observation Consideration of admission/observation: Escalation of care including admission/observation considered (I considered admission for palpitations, see course narrative for further detail) Lab Data MDM Lab Attestation statement: I reviewed the patient's lab results. (As per course narrative) 09/23/22 14:22 09/23/22 14:22 Labs: Lab Results 09/23/22 09/23/22 09/23/22 Range/Units 14:22 14:22 14:22 WBC 5.0 (4.8-10.8) X10*3/uL RBC 4.91 (4.60-5.80) X10*6/uL Hgb 14.7 (14.0-18.0) g/dl Hct 43.2 (42.0-52.0) % MCV 88.0 (80.0-98.0) fL MCH 29.9 (27.0-33.0) pg MCHC 34.0 (31.0-36.0) g/dl RDW 12.1 (11.0-16.0) % Plt Count 218 (160-400) X10*3/uL MPV 11.1 (9.4-12.4) fL Immature Gran % (Auto) 0.2 (0.0-0.4) % Neut % (Auto) 61.6 (45-73) % Lymph % (Auto) 29.0 (20-40) % [place] % (Auto) 7.0 (2-11) % Eos % (Auto) 1.6 (0-4) % Baso % (Auto) 0.6 (0-2) % Lymph # (Auto) 1.4 (1.2-4.9) X10*3/uL [place] # (Auto) 0.4 (0.1-1.2) X10*3/uL Eos # (Auto) 0.1 (0.0-0.4) X10*3/uL Baso # (Auto) 0.0 (0.0-0.2) X10*3/uL Abs Immat Gran (auto) 0.01 (0.00-0.03) X10*3/uL Absolute Neuts (auto) 3.1 (2.0-8.3) x10*3/uL Absolute Nucleated RBC 0.000 (0.0-0.012) X10*3/uL Nucleated RBC % (auto) 0.0 (0.0-0.2) /100WBC Sodium 138 (135-145) mmol/L Potassium 4.0 (3.3-5.1) mmol/L Chloride 108 (96-108) mmol/L Carbon Dioxide 22 (22-29) mmol/L Anion Gap 12 (12-20) BUN 8 L (9-16) mg/dL Creatinine 0.82 (0.5-1.4) mg/dL Estim Creat Clear Calc 96.1 Estimated GFR > 60 Random Glucose 95 (60-115) mg/dL Calcium 9.6 (8.4-10.2) mg/dL Magnesium 2.2 (1.6-2.6) mg/dL Total Bilirubin 0.7 (0.0-1.0) mg/dL Direct Bilirubin 0.3 (0.0-0.5) mg/dL AST 29 (5-37) U/L ALT 34 (0-40) U/L Alkaline Phosphatase 67 (39-117) U/L Troponin I High Sens < 2.7 (<3.5-35.0) ng/L Total Protein 7.1 (6.5-8.0) g/dL Albumin 4.3 (3.5-5.0) g/dL Lipase 20 (8-78) U/L TSH (0.32-4.0) uIU/mL Ethyl Alcohol mg/dL 09/23/22 Range/Units 14:22 WBC (4.8-10.8) X10*3/uL RBC (4.60-5.80) X10*6/uL Hgb (14.0-18.0) g/dl Hct (42.0-52.0) % MCV (80.0-98.0) fL MCH (27.0-33.0) pg MCHC (31.0-36.0) g/dl RDW (11.0-16.0) % Plt Count (160-400) X10*3/uL MPV (9.4-12.4) fL Immature Gran % (Auto) (0.0-0.4) % Neut % (Auto) (45-73) % Lymph % (Auto) (20-40) % [place] % (Auto) (2-11) % Eos % (Auto) (0-4) % Baso % (Auto) (0-2) % Lymph # (Auto) (1.2-4.9) X10*3/uL [place] # (Auto) (0.1-1.2) X10*3/uL Eos # (Auto) (0.0-0.4) X10*3/uL Baso # (Auto) (0.0-0.2) X10*3/uL Abs Immat Gran (auto) (0.00-0.03) X10*3/uL Absolute Neuts (auto) (2.0-8.3) x10*3/uL Absolute Nucleated RBC (0.0-0.012) X10*3/uL Nucleated RBC % (auto) (0.0-0.2) /100WBC Sodium (135-145) mmol/L Potassium (3.3-5.1) mmol/L Chloride (96-108) mmol/L Carbon Dioxide (22-29) mmol/L Anion Gap (12-20) BUN (9-16) mg/dL Creatinine (0.5-1.4) mg/dL Estim Creat Clear Calc Estimated GFR Random Glucose (60-115) mg/dL Calcium (8.4-10.2) mg/dL Magnesium (1.6-2.6) mg/dL Total Bilirubin (0.0-1.0) mg/dL Direct Bilirubin (0.0-0.5) mg/dL AST (5-37) U/L ALT (0-40) U/L Alkaline Phosphatase (39-117) U/L Troponin I High Sens (<3.5-35.0) ng/L Total Protein (6.5-8.0) g/dL Albumin (3.5-5.0) g/dL Lipase (8-78) U/L TSH 0.29 L (0.32-4.0) uIU/mL Ethyl Alcohol < 10 mg/dL Independent Interpretation I performed an independent interpretation of an: EKG Interpretation: Rate: 78 Rhythm:? Normal sinus rhythm [place]:? Normal Normal P waves.? Normal NHAN.?? Normal QRS complex.?? ST T wave :??No ST elevation, no ST depression, no T-wave inversion qTC: 421 prior studies:? July 2022 The study has been interpreted contemporaneously by me. Discharge Plan Discharge Clinical Impression: Heart palpitations, Anxiety, Hyperthyroidism Patient Disposition: Left Against Medical Advice Instructions: Heart Palpitations (ED), Hyperthyroidism (ED), Anxiety (ED) Additional Instructions: As discussed, your blood work today reveals hyperthyroidism, it was recommended that you remain in the hospital for further evaluation however you declined. As we discussed, abnormal thyroid function that is left on treated can be life threatening, complications can include irregular heartbeats, stroke, heart failure, muscle problems. Please contact your primary care provider to arrange for further follow-up. Please consider returning back to emergency department with any new or worsening symptoms or concerns. Prescriptions: No Action chlordiazepoxide HCl 25 mg capsule 50 mg PO Q8H PRN (Reason: alcohol withdrawal) Qty: 11 0RF Rx Instructions: day 1 take 50 mg b.i.d.. Day 2 take 25 mg every 6 hours. states 3 take 25 mg b.i.d. day 4 take 25 mg at bedtime chlordiazepoxide HCl 25 mg capsule 25 mg PO Q8H Qty: 14 0RF oxycodone 5 mg tablet 5 mg PO Q8H PRN (Reason: pain) Qty: 7 0RF amoxicillin-pot clavulanate [Augmentin] 875-125 mg tablet 1 tab PO Q12H 10 Days Qty: 20 0RF epinephrine [EpiPen] 0.3 mg/0.3 mL auto-injector 0.3 mg IM Q4H PRN (Reason: anaphylaxis) Qty: 2 0RF amoxicillin-pot clavulanate 875-125 mg tablet 1 tab PO BID Qty: 20 0RF Referrals: Pao Aden DO [Primary Care Provider] -
[2022-09-23 14:26] LABS: MANUAL DIFF FLAG NO
[2022-09-23 14:29] LABS: Basophils Percent Auto 0.6 % (0-2); Eosinophils Absolute Auto 0.1 X10*3/uL (0.0-0.4); Eosinophils Percent Auto 1.6 % (0-4); Hematocrit 43.2 % (42.0-52.0); Hemoglobin 14.7 g/dl (14.0-18.0); Imm Gran Abs Auto 0.01 X10*3/uL (0.00-0.03); Imm Gran Pct Auto 0.2 % (0.0-0.4); Lymphocytes Absolute Auto 1.4 X10*3/uL (1.2-4.9); Mean Corpuscular Hemoglobin 29.9 pg (27.0-33.0); Mean Platelet Volume 11.1 fL (9.4-12.4); Monocytes Absolute Auto 0.4 X10*3/uL (0.1-1.2); Neutrophils Absolute Auto 3.1 x10*3/uL (2.0-8.3); Neutrophils Percent Auto 61.6 % (45-73); Platelet Count 218 X10*3/uL (160-400); Red Blood Count 4.91 X10*6/uL (4.60-5.80); Red Cell Distribution Width 12.1 % (11.0-16.0)
[2022-09-23 14:41] LABS: Ethanol < 10 mg/dL
[2022-09-23 14:43] LABS: Alanine Aminotransferase 34 U/L (0-40); Albumin Level 4.3 g/dL (3.5-5.0); Alkaline Phosphatase 67 U/L (39-117); Anion Gap 12 (12-20); Aspartate Amino Transferase 29 U/L (5-37); Bilirubin Direct 0.3 mg/dL (0.0-0.5); Bilirubin Total 0.7 mg/dL (0.0-1.0); Blood Urea Nitrogen 8 mg/dL (9-16); Calcium 9.6 mg/dL (8.4-10.2); Carbon Dioxide 22 mmol/L (22-29); Chloride 108 mmol/L (96-108); Creatinine Clr Calc Pharmacy 96.1; Estimated Glomerular Filt Rate > 60; Glucose Random 95 mg/dL (60-115); Lipase 20 U/L (8-78); Magnesium 2.2 mg/dL (1.6-2.6); Sodium 138 mmol/L (135-145); Total Protein 7.1 g/dL (6.5-8.0)
[2022-09-23 14:54] LABS: Troponin-I High Sensitivity < 2.7 ng/L (<3.5-35.0)
[2022-09-23 17:57] VITALS: BP 131/93; PULSE 99; RESP 17; TEMP 37.1; O2SAT 99
[2022-09-23 18:24] LABS: Thyroid Stimulating Hormone 0.29 uIU/mL (0.32-4.0)
== END 2022-09-23 19:00 | disposition left against medical advice (07) ==
PROVIDERS: Nurse Practitioner Family; Physician Assistant Medical; Emergency Provider Student in an Organized Health Care Education/Training Program; PCP Family Medicine
DX: R00.2 Palpitations (principal); F41.9 Anxiety disorder, unspecified; E05.90 Thyrotoxicosis, unspecified without thyrotoxic crisis or storm; Z79.899 Other long term (current) drug therapy
CPT/HCPCS: 36415; 80048; 80076; 80307; 83690; 83735; 84443; 84484; 85025; 93005; 99283; 99285

== ENCOUNTER → 2022-09-23 12:54 | Outpatient (BNV) | payer MEDICAID, SELFPAY | PROVIDERS: PCP Family Medicine; Visit Provider Internal Medicine Cardiovascular Disease | DX: I49.9 Cardiac arrhythmia, unspecified (principal) | CPT/HCPCS: 93010 ==

== ENCOUNTER 2022-09-24 01:54 | Emergency (ER) | payer MEDICAID, SELFPAY ==
--- NOTE | 2022-09-24 02:06 | ECG_ITS ---
Test Reason : palpations Blood Pressure : / mmHG Vent. Rate : 088 BPM Atrial Rate : 088 BPM P-R Int : 124 ms QRS Dur : 092 ms QT Int : 350 ms P-R-T Axes : 075 049 043 degrees QTc Int : 423 ms Normal sinus rhythm with sinus arrhythmia Possible Left atrial enlargement Borderline ECG When compared with ECG of 23-SEP-2022 13:01, No significant change was found Referred By: Generic ED Physician Electronically Signed By:Jeffry Garduno
[2022-09-24 02:09] VITALS: BP 124/86; PULSE 88; O2SAT 100
[2022-09-24 02:32] LABS: Delay - Chemistry DELAY
[2022-09-24 02:36] VITALS: BP 107/78; PULSE 86; RESP 16; TEMP 36.5; BMI 24.7
[2022-09-24 03:06] LABS: Basophils Percent Auto 0.5 % (0-2); Eosinophils Absolute Auto 0.2 X10*3/uL (0.0-0.4); Eosinophils Percent Auto 2.9 % (0-4); Hematocrit 42.3 % (42.0-52.0); Hemoglobin 14.3 g/dl (14.0-18.0); Imm Gran Abs Auto 0.01 X10*3/uL (0.00-0.03); Imm Gran Pct Auto 0.2 % (0.0-0.4); Lymphocytes Absolute Auto 2.5 X10*3/uL (1.2-4.9); Lymphocytes Percent Auto 40.4 % (20-40); MANUAL DIFF FLAG NO; Mean Corpuscular HGB Conc 33.8 g/dl (31.0-36.0); Mean Corpuscular Hemoglobin 29.2 pg (27.0-33.0); Mean Corpuscular Volume 86.5 fL (80.0-98.0); Mean Platelet Volume 10.7 fL (9.4-12.4); Monocytes Absolute Auto 0.5 X10*3/uL (0.1-1.2); Monocytes Percent Auto 7.2 % (2-11); Neutrophils Absolute Auto 3.1 x10*3/uL (2.0-8.3); Neutrophils Percent Auto 48.8 % (45-73); Platelet Count 215 X10*3/uL (160-400); Red Blood Count 4.89 X10*6/uL (4.60-5.80); Red Cell Distribution Width 11.9 % (11.0-16.0); White Blood Count 6.2 X10*3/uL (4.8-10.8)
[2022-09-24 03:18] LABS: Anion Gap 13 (12-20); Blood Urea Nitrogen 8 mg/dL (9-16); Calcium 9.4 mg/dL (8.4-10.2); Carbon Dioxide 24 mmol/L (22-29); Chloride 107 mmol/L (96-108); Creatinine Clr Calc Pharmacy 89.6; Estimated Glomerular Filt Rate > 60; Glucose Random 88 mg/dL (60-115); Potassium 4.1 mmol/L (3.3-5.1); Sodium 140 mmol/L (135-145)
[2022-09-24 04:17] LABS: Troponin-I High Sensitivity < 2.7 ng/L (<3.5-35.0)
[2022-09-24 04:39] VITALS: BP 127/63; PULSE 63; RESP 16; TEMP 36.2; O2SAT 98
[2022-09-24 07:44] VITALS: BP 116/76; PULSE 72; RESP 12; TEMP 36.9; O2SAT 100
--- NOTE | 2022-09-24 08:11 | PC.NURSE ---
patient resting in bed, normal sinus on the monitor. patient respirations equal and unlabored, pt states he has occasional palpitations and anxiety.
--- NOTE | 2022-09-24 08:13 | ED.ARRPALP ---
HPI - Arrhythmia/Palpitations General Chief Complaint: Arrhythmia/Palpitations Stated Complaint: palpitations Time Seen by Provider: 09/24/22 07:41 Source: patient Mode of arrival: ambulatory Limitations: no limitations History of Present Illness HPI narrative: 37-year-old male with history of anxiety, former alcohol abuse and dependence, who presents to the ER for evaluation of intermittent palpitations. Patient was seen here yesterday for the same. 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 He states when he went home he had ongoing palpitations. He states he would feel anxious, check his pulse, and feels skipped beats or extra beats. He denied any associated chest pain, shortness of breath, numbness, tingling, nausea, diaphoresis. He states he no longer drinks hard alcohol and will occasionally drink 1-2 beers. He no longer drinks caffeine. He states overall his palpitations have been occurring on and off for the last couple of years. He was seen by Cardiology in the past, had a normal stress test and echo. MD complaint: skipped beats and palpitations Duration: intermittent Severity: moderate Associated symptoms: anxiety Treatments prior to arrival: other (Hydroxyzine) Related Data Previous Rx's Medication Instructions Recorded chlordiazepoxide HCl 25 mg capsule 50 mg PO Q8H PRN alcohol 01/31/20 withdrawal #11 caps amoxicillin 875 mg-potassium 1 tab PO Q12H 10 days #20 tabs 06/26/20 clavulanate 125 mg tablet (Augmentin) oxycodone 5 mg tablet 5 mg PO Q8H PRN pain #7 tabs 06/26/20 chlordiazepoxide HCl 25 mg capsule 25 mg PO Q8H #14 caps 11/08/20 epinephrine 0.3 mg/0.3 mL 0.3 mg (0.3 mL) IM Q4H PRN 07/09/22 injection, auto-injector (EpiPen) anaphylaxis #2 ea amoxicillin 875 mg-potassium 1 tab PO BID #20 tabs 07/15/22 clavulanate 125 mg tablet Allergies Allergy/AdvReac Type Severity Reaction Status Date / Time ibuprofen Allergy Hives Verified 09/23/22 14:09 Review of Systems Review of Systems: Yes all other systems are reviewed and are negative [facility] Past Medical History Medical History Agoraphobia Anxiety Chronic back pain Depression Migraine Surgical History Hx of removal of cyst Social History Social History Alcohol intake: current Alcohol intake frequency: 0-2 drinks per day Alcohol type: beer Smoked in Last 30 Days: Yes Use of substances other than those prescribed or required for medical reasons: Yes Substance Use Type: Marijuana Substance Use Frequency: Occasionally Advance Directives: No Advance Directives Information Provided: No Physical Exam Vital Signs: Vital Signs: Last Vital Signs Temp 98.5 F 09/24/22 07:44 Pulse 72 09/24/22 07:44 Resp 12 09/24/22 07:44 BP 116/76 09/24/22 07:44 Pulse Ox 100 09/24/22 07:44 O2 Del Method Room Air 09/24/22 07:44 BMI result Body Mass Index 24.7 Appearance: Alert. Oriented X3. No acute distress. Head: normocephalic, atraumatic. Eyes: Pupils equal, round and reactive to light. ENT: Pharynx normal. No tonsillar swelling or exudate. Neck: Normal inspection. Neck supple. CVS: Normal heart rate and rhythm. Pulses normal. Respiratory: No respiratory distress. Breath sounds normal. Abdomen: Soft and nontender. +BS x4 Skin: Skin warm and dry. Normal skin color. Normal skin turgor. No rashes. Extremities: No lower extremity edema. No joint swelling. Neuro/psych: Oriented X 3. No motor deficit. No sensory deficit. CN II-XII intact. Normal speech and cognition. Medical Decision Making Medical Decision Making MDM Narrative: 37-year-old male presenting to the ER for evaluation of intermittent palpitations, going on for the last couple of years. Seen here yesterday for the same. Lab workup unremarkable aside for a mildly low TSH of 0.29. His EKG and other labs are unremarkable. He left before T3-T4 were resulted. His heart rate remained stable. He does not appear to have any other symptoms of hyperthyroidism. His heart rates are the 70s. He has an appointment coming up with his primary care doctor. Doubt thyroid storm or symptomatic hyperthyroidism. At this time recommend outpatient follow-up with repeat TSH with reflex T4. Patient reassured and feels better. He is stable for discharge home Differential Diagnosis Differential Diagnoses: The differential diagnosis associated with the presentation includes Anxiety, PVCs, thyroid dysfunction, alcohol withdrawal Lab Data MDM Lab Attestation statement: I reviewed the patient's lab results. No significant metabolic derangement, troponin negative 09/24/22 03:01 09/24/22 03:01 Labs: Lab Results 09/24/22 09/24/22 09/24/22 Range/Units 02:32 03:01 03:01 WBC 6.2 (4.8-10.8) X10*3/uL RBC 4.89 (4.60-5.80) X10*6/uL Hgb 14.3 (14.0-18.0) g/dl Hct 42.3 (42.0-52.0) % MCV 86.5 (80.0-98.0) fL MCH 29.2 (27.0-33.0) pg MCHC 33.8 (31.0-36.0) g/dl RDW 11.9 (11.0-16.0) % Plt Count 215 (160-400) X10*3/uL MPV 10.7 (9.4-12.4) fL Immature Gran % (Auto) 0.2 (0.0-0.4) % Neut % (Auto) 48.8 (45-73) % Lymph % (Auto) 40.4 H (20-40) % [place] % (Auto) 7.2 (2-11) % Eos % (Auto) 2.9 (0-4) % Baso % (Auto) 0.5 (0-2) % Lymph # (Auto) 2.5 (1.2-4.9) X10*3/uL [place] # (Auto) 0.5 (0.1-1.2) X10*3/uL Eos # (Auto) 0.2 (0.0-0.4) X10*3/uL Baso # (Auto) 0.0 (0.0-0.2) X10*3/uL Abs Immat Gran (auto) 0.01 (0.00-0.03) X10*3/uL Absolute Neuts (auto) 3.1 (2.0-8.3) x10*3/uL Absolute Nucleated RBC 0.000 (0.0-0.012) X10*3/uL Nucleated RBC % (auto) 0.0 (0.0-0.2) /100WBC Sodium 140 (135-145) mmol/L Potassium 4.1 (3.3-5.1) mmol/L Chloride 107 (96-108) mmol/L Carbon Dioxide 24 (22-29) mmol/L Anion Gap 13 (12-20) BUN 8 L (9-16) mg/dL Creatinine 0.88 (0.5-1.4) mg/dL Estim Creat Clear Calc 89.6 Estimated GFR > 60 Random Glucose 88 (60-115) mg/dL Calcium 9.4 (8.4-10.2) mg/dL Troponin I High Sens (<3.5-35.0) ng/L Specimen Comment DELAY 09/24/22 Range/Units 03:01 WBC (4.8-10.8) X10*3/uL RBC (4.60-5.80) X10*6/uL Hgb (14.0-18.0) g/dl Hct (42.0-52.0) % MCV (80.0-98.0) fL MCH (27.0-33.0) pg MCHC (31.0-36.0) g/dl RDW (11.0-16.0) % Plt Count (160-400) X10*3/uL MPV (9.4-12.4) fL Immature Gran % (Auto) (0.0-0.4) % Neut % (Auto) (45-73) % Lymph % (Auto) (20-40) % [place] % (Auto) (2-11) % Eos % (Auto) (0-4) % Baso % (Auto) (0-2) % Lymph # (Auto) (1.2-4.9) X10*3/uL [place] # (Auto) (0.1-1.2) X10*3/uL Eos # (Auto) (0.0-0.4) X10*3/uL Baso # (Auto) (0.0-0.2) X10*3/uL Abs Immat Gran (auto) (0.00-0.03) X10*3/uL Absolute Neuts (auto) (2.0-8.3) x10*3/uL Absolute Nucleated RBC (0.0-0.012) X10*3/uL Nucleated RBC % (auto) (0.0-0.2) /100WBC Sodium (135-145) mmol/L Potassium (3.3-5.1) mmol/L Chloride (96-108) mmol/L Carbon Dioxide (22-29) mmol/L Anion Gap (12-20) BUN (9-16) mg/dL Creatinine (0.5-1.4) mg/dL Estim Creat Clear Calc Estimated GFR Random Glucose (60-115) mg/dL Calcium (8.4-10.2) mg/dL Troponin I High Sens < 2.7 (<3.5-35.0) ng/L Specimen Comment Independent Interpretation I performed an independent interpretation of an: EKG Interpretation: EKG with normal sinus rhythm, sinus arrhythmia, ventricular rate 88 beats per minute, normal [place] interval, normal QTC, no significant change from yesterday. External Record Review External record reviewed: Outpatient record and Prior outpatient labs Prescription Management I considered prescription management with: Other (Anxiolytic) Chronic Conditions Patient?s care impacted by: Other (Anxiety) Social Determinants Patient?s care significantly limited by Social Determinants of Health including: Other Social Determinant of Health (Difficulty getting his primary care doctor, she rescheduled multiple times) Critical Care Time Critical Care Time Critical Care Time: No Discharge Plan Discharge Clinical Impression: Palpitations Patient Disposition: Home, Self-Care Instructions: Heart Palpitations (DC) Additional Instructions: follow up with your primary care doctor your lab workup was unremarkable you thyroid stimulating hormone was mildly low 0.29 no need to start you on thyroid medication today recommend getting it rechecked by your doctor take your hydroxyzine as needed for anxiety/palpitations if you develop new or worsening symptoms call 911 or come back to the ER for further evaluation. Prescriptions: No Action chlordiazepoxide HCl 25 mg capsule 50 mg PO Q8H PRN (Reason: alcohol withdrawal) Qty: 11 0RF Rx Instructions: day 1 take 50 mg b.i.d.. Day 2 take 25 mg every 6 hours. states 3 take 25 mg b.i.d. day 4 take 25 mg at bedtime chlordiazepoxide HCl 25 mg capsule 25 mg PO Q8H Qty: 14 0RF oxycodone 5 mg tablet 5 mg PO Q8H PRN (Reason: pain) Qty: 7 0RF amoxicillin-pot clavulanate [Augmentin] 875-125 mg tablet 1 tab PO Q12H 10 Days Qty: 20 0RF epinephrine [EpiPen] 0.3 mg/0.3 mL auto-injector 0.3 mg IM Q4H PRN (Reason: anaphylaxis) Qty: 2 0RF amoxicillin-pot clavulanate 875-125 mg tablet 1 tab PO BID Qty: 20 0RF
== END 2022-09-24 08:51 | disposition home or self-care (01) ==
PROVIDERS: Emergency Provider Emergency Medicine; PCP Family Medicine
DX: R00.2 Palpitations (principal); F41.9 Anxiety disorder, unspecified; Z79.899 Other long term (current) drug therapy
CPT/HCPCS: 36415; 80048; 84484; 85025; 93005; 99284; 99285

== ENCOUNTER → 2022-09-24 02:06 | Outpatient (BNV) | payer MEDICAID, SELFPAY | PROVIDERS: Emergency Provider Emergency Medicine; PCP Family Medicine; Visit Provider Internal Medicine Cardiovascular Disease | DX: I49.9 Cardiac arrhythmia, unspecified (principal) | CPT/HCPCS: 93010 ==

== ENCOUNTER → 2022-11-28 09:08 | Outpatient (REF) | payer MEDICAID, SELFPAY ==
--- NOTE | 2022-11-28 09:11 | CA_ITS ---
Transthoracic Echocardiogram Patient (Last, First, Middle): Mark Moore, Gender: Male Date of : 1985 Age: 37 Procedure Date: 11/28/2022 Procedure Type: Transthoracic Echocardiogram Location: OP Height: 157.48 cm Weight: 58.97 kg BSA: 1.59 m2 Heart Rate: 66 bpm BP: 128 / 70 mmHg Material Disposition Inspector: SB Referring MD: Pao Aden DO Symptoms: R00.2 PALPITATIUONS Study Quality: Adequate ECG Rhythm: Sinus Conclusions: - The left ventricular systolic function is normal. The calculated ejection fraction is 61% by biplane method. - No obvious valvular pathology seen on this study. Findings Left Ventricle Normal left ventricular cavity size. There is normal left ventricular wall thickness. The left ventricular systolic function is normal. The calculated ejection fraction is 61% by biplane method. There is no evidence of regional wall motion abnormalities. Diastolic function is normal for age. LV peak GLS -20.9%. Right Ventricle Normal right ventricular cavity size and systolic function. Atria Both atria are normal in size. Aortic Valve There is a normal trileaflet aortic valve. There is no aortic valve stenosis. There is no aortic valve regurgitation. Mitral Valve The mitral valve appears normal. There is no mitral valve regurgitation. There is no mitral valve stenosis. Pulmonic Valve The pulmonic valve is likely normal. Tricuspid Valve There is no tricuspid valve regurgitation. Tricuspid regurgitation envelope is inadequate for calculation of right ventricular systolic pressure. Great Vessels The asc aorta is normal in size. Venous The inferior vena cava is normal in size and collapses greater than 50% with inspiration. Pericardium/Pleural There is no evidence of pericardial effusion. Prior Study Comparison No prior study available for comparison. Recommendations, Care & Conclusions No obvious valvular pathology seen on this study. Measurements 2D Linear Measurements IVSd: 0.50 0.6-0.9/0.6-1.0 cm LVIDd: 4.80 3.9-5.3/4.2-5.9 cm LVIDd Index: 3.02 2.4-3.2/2.2-3.1 cm/m2 LVIDs: 3.30 2.0-3.6 cm LVPWd: 0.50 0.7-1.1 cm Ao Root: 2.70 2.1-3.5 cm LA Diam: 3.30 2.7-3.8/3.0-4.0 cm LAIDs Index: 2.08 1.5-2.3 cm/m2 LV Mass: 87.90 67-162/88-224 g LV Mass Index: 55.28 43-95/49-115 g/m2 LVOT Diam: 2.00 3.0+(-)1.3 cm 2D Systolic Function EF 4C: 58.70 >55% EF 2C: 66.20 >55% EF BiP: 61.10 >55% Mitral Valve MV Pk E: 0.85 MV PK A: 0.52 MV Decel Time: 155.00 E/A: 1.60 E'Lateral: 14.40 E'Medial: 11.50 E/E' Med: 7.40 E/E' Lat: 5.90 PHT: 45.00 MVA PHT: 4.89 Decel Pine: 5.49 Aortic Valve AoV Pk Manoj: 1.12 AoV Pk Grad: 5.00 CHRISTOPHER: 2.71 LVOT LVOT Pk Manoj: 0.97 LVOT Mn Manoj: 0.70 LVOT VTI: 0.19 LVOT Pk Grad: 4.00 LVOT Mn Grad: 2.00 LVOT Diam: 2.00 LVOT Area: 3.14 Diastolic Function MV Pk E: 0.85 MV Pk A: 0.52 E/A: 1.60 E'Medial: 11.50 E/E' Med: 7.40 E' Laterial: 14.40 E/E' Lat: 5.90 Right Ventricle TAPSE (mm): 19.10 TVS' Manoj: 12.10 Tricuspid Valve TR Pk Manoj: 1.88 TR Pk Grad: 14.00 RA Press: 8.00 Great Vessels Aorta Ao Root-2D: 2.70 2.0-3.7 cm Ao Asc: 2.70 2.1-3.4 cm Pulmonary Valve PV Pk Manoj: 0.86 Peak PV Grad: 3.00 Updated in Other Vendor System with Status of Final Edd Sanderson MD electronically signed on 11/28/2022 12:01:21 PM with status of Final
--- NOTE | 2022-11-28 09:12 | HM_ITS ---
* Total monitoring time 2 days. * Underlying rhythm is sinus. Average ventricular rate 92/Min. Range 50 to 161/Min. * About 40% the time, rate greater than 100/Min. * Rare supraventricular ectopy. * No significant pauses or AV blocks. * No patient markers. Mention of pulsing pain in head but no specific events correlated. MTDD
== END ==
LOC: HO.CARD 09:08
PROVIDERS: PCP Family Medicine; Visit Provider Family Medicine
DX: R00.2 Palpitations (principal)
CPT/HCPCS: 93225; 93306; 93356

== ENCOUNTER → 2022-11-28 09:11 | Outpatient (BNV) | payer MEDICAID, SELFPAY | PROVIDERS: PCP Family Medicine; Visit Provider Internal Medicine | DX: R00.2 Palpitations (principal) | CPT/HCPCS: 93306 ==

== ENCOUNTER 2022-11-28 10:39 | Outpatient (REF) | payer MEDICAID, SELFPAY ==
[2022-11-28 13:05] LABS: MANUAL DIFF FLAG NO
[2022-11-28 13:23] LABS: Basophils Percent Auto 0.8 % (0-2); Eosinophils Absolute Auto 0.1 X10*3/uL (0.0-0.4); Eosinophils Percent Auto 2.4 % (0-4); Hematocrit 43.8 % (42.0-52.0); Hemoglobin 15.1 g/dl (14.0-18.0); Imm Gran Abs Auto 0.01 X10*3/uL (0.00-0.03); Imm Gran Pct Auto 0.3 % (0.0-0.4); Lymphocytes Absolute Auto 1.8 X10*3/uL (1.2-4.9); Lymphocytes Percent Auto 47.6 % (20-40); Mean Corpuscular HGB Conc 34.5 g/dl (31.0-36.0); Mean Corpuscular Hemoglobin 29.7 pg (27.0-33.0); Mean Corpuscular Volume 86.2 fL (80.0-98.0); Mean Platelet Volume 11.9 fL (9.4-12.4); Monocytes Absolute Auto 0.4 X10*3/uL (0.1-1.2); Monocytes Percent Auto 11.6 % (2-11); Neutrophils Absolute Auto 1.4 x10*3/uL (2.0-8.3); Neutrophils Percent Auto 37.3 % (45-73); Platelet Count 219 X10*3/uL (160-400); Red Blood Count 5.08 X10*6/uL (4.60-5.80); Red Cell Distribution Width 12.2 % (11.0-16.0); White Blood Count 3.8 X10*3/uL (4.8-10.8)
[2022-11-28 13:37] LABS: Estimated Average Glucose 91 mg/dL; Hemoglobin A1c % 4.8 % (<6.0)
[2022-11-28 13:40] LABS: Alanine Aminotransferase 20 U/L (0-40); Albumin Level 4.3 g/dL (3.5-5.0); Alkaline Phosphatase 67 U/L (39-117); Anion Gap 11 (12-20); Aspartate Amino Transferase 25 U/L (5-37); Bilirubin Direct 0.3 mg/dL (0.0-0.5); Bilirubin Total 0.7 mg/dL (0.0-1.0); Blood Urea Nitrogen 10 mg/dL (9-16); Calcium 9.6 mg/dL (8.4-10.2); Carbon Dioxide 26 mmol/L (22-29); Chloride 105 mmol/L (96-108); Cholesterol 150 mg/dL (<200); Estimated Glomerular Filt Rate > 60; Glucose Random 100 mg/dL (60-115); HDL Cholesterol 61 mg/dL (>40); LDL Cholesterol Calculated 75 mg/dL (<100); Potassium 4.4 mmol/L (3.3-5.1); Sodium 138 mmol/L (135-145); Total Protein 7.1 g/dL (6.5-8.0); Triglycerides 71 mg/dL (<150)
[2022-11-28 13:55] LABS: Free T4 (Free Thyroxine) 0.96 ng/dL (0.71-1.85); Thyroid Stimulating Hormone 0.46 uIU/mL (0.32-4.0)
[2022-11-28 14:54] LABS: Vitamin D 25-OH Total 36.8 ng/mL (>30)
[2022-11-28 15:44] LABS: CT PCR NOT DETECTED (Not Detect.); NG PCR NOT DETECTED (Not Detect.)
[2022-11-29 08:07] LABS: Syphilis Screen Nonreactive (Nonreactive)
[2022-11-29 08:22] LABS: HBS Num1 > 1000.00 mIU/mL (0-7.99); HBsAGNum1 0.29 S/CO (0.00-0.99); HIV AB/AG Nonreactive (Nonreactive); HIV Num 1 0.05 S/CO (0.00-0.99); Hepatitis B Surface Antigen Negative (Negative); ~HepC Num1 0.07 S/CO (0.00-0.79); ~Hepatitis B Surface Antibody REACTIVE (Nonreactive); ~Hepatitis C Antibody Nonreactive (Nonreactive)
== END 2022-11-28 10:40 | disposition home or self-care (01) ==
LOC: HO.HHCL 10:39
PROVIDERS: Visit Provider Family Medicine
DX: R00.2 Palpitations (principal); F41.9 Anxiety disorder, unspecified
CPT/HCPCS: 0353U; 80048; 80061; 80076; 82306; 83036; 84439; 84443; 85025; 86706; 86780; 86803; 87340; 87389

== ENCOUNTER 2023-02-25 09:36 | Outpatient (REF) | payer MEDICAID, SELFPAY | END 2023-02-25 09:37 | disposition home or self-care (01) | LOC: HO.HHCX 09:36 | PROVIDERS: Visit Provider Family Medicine | DX: M54.2 Cervicalgia (principal); M54.9 Dorsalgia, unspecified; G89.29 Other chronic pain | CPT/HCPCS: 72040; 72070; 72100 ==

== ENCOUNTER 2023-05-06 13:17 | Outpatient (AMB) | payer MEDICAID, SELFPAY ==
--- NOTE | 2023-05-06 13:34 | A.OFFVIS_ITS ---
Intake Vital Signs 05/06/23 13:43 Height 5 ft 2 in Weight 152 lb 1.903 oz BMI 27.8 BP 120/80 Blood Pressure Location Lt brachial Position Sitting Pulse 87 Intake Visit Reasons: NPV/Palpitations/J. 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 Patient says for many years he has been having sharp chest pain that sometimes is in the front of the chest in the precordial area sometimes comes from the back going into the front. Symptoms are not exertion related. Symptoms can happen at any time. He has had a stress echocardiogram for the same in the past, do not have the copy of it but was told that this was within normal limits at another byproducts maker's office. Patient also complains of symptoms of palpitation very he says he gets anxious and then his heart is racing. He underwent echocardiogram which showed normal structure of the heart and Holter monitor which showed frequent sinus tachycardia. Patient has had workup in the past including TSH which has been within normal limits. He says he has a tendency for anxiety and for that he takes medications. He also has past history of alcohol use disorder which she says has been much mitigated and now only drinks 1 beer a day. [facility] Medical History Migraine Chronic back pain Depression Anxiety Agoraphobia Surgical History Hx of removal of cyst Family History Father No problems noted. Mother HTN (hypertension) Social History Alcohol intake: current Alcohol intake frequency: 0-2 drinks per day Alcohol type: beer Substance Use Type: Marijuana Review of Systems Const Denies chills, Denies daytime sleepiness, Denies fatigue, Denies fever(s), Gavin es frequent falls, Denies poor appetite, Denies snoring, Denies stops breathing during sleep, Denies weakness, Denies weight gain and Denies weight loss Eyes Denies loss of vision ENT Denies dizziness and Denies hearing loss Card Denies chest pain, Denies claudication, Denies leg edema, Denies lightheadedness, Denies palpitations, Denies dyspnea, Denies dyspnea on exertion and Denies orthopnea Resp Denies cough, Denies excessive phlegm production, Denies dyspnea, Denies dyspnea on exertion, Denies snoring and Denies wheezing GI Denies abdominal pain, Denies hematochezia, Denies change in bowel habits, Denies nausea and Denies vomiting Denies dysuria and Denies urinary frequency Musc Denies arthralgias, Denies muscle weakness, Denies numbness and Denies other (frequent falls) Skin/Breast Denies nail changes and Denies rash Neuro Denies Abnormal speech present, Denies dizziness, Denies frequent falls, Denies loss of vision, Denies memory loss, Denies numbness and Denies weakness Psych Denies depression and Denies memory loss Endo Denies fatigue and Denies palpitations Tam/Lymph Reports easy bruising and Reports other (anemia) Aller/Immun Denies wheezing Physical Exam Vital Signs: Last Vital Signs Pulse 87 05/06/23 13:43 BP 120/80 05/06/23 13:43 BMI result Body Mass Index 27.8 Const General: cooperative, comfortable, no acute distress, alert, awake, Physically active and anxious Nutritional Appearance: average body habitus Orientation/consciousness: patient oriented x3 Limitations: no limitations HEENT Head: Yes normocephalic and Yes atraumatic Neck Neck: Yes trachea midline, Yes supple and Yes no JVD Resp Effort & Inspection: normal respiratory effort Auscultation: clear to auscultation bilaterally Cardio Jugular venous distension: no JVD Palpation: normal PMI Rate: regular rate Rhythm: regular rhythm Heart sounds: S1 normal heart sound present, S2 normal heart sound present, no click, no gallops, no murmurs and no rubs GI Auscultation: normal bowel sounds Skin General skin exam: no rashes or lesions noted Neuro General: patient oriented x3 and no focal motor deficits Speech: No Abnormal speech present Extrem General: Yes no clubbing, cyanosis or edema Office Procedures EKG Details: EKG shows normal sinus rhythm with normal EKG 33615-[id number], Complete Assessment & Plan Assessment & Plan (1) Non-cardiac chest pain: Code(s): R07.89 - Other chest pain Plan: Patient's chest pain syndrome is nonischemic in nature and clinically does appear to be related to any cardiac issues. His workup including stress echocardiogram for this chest pain as within normal limits. He also had a echocardiogram shows normal structure of the heart. No further workup is indicated. Discussed with him possibility of musculoskeletal chest pain. At this point time no further testing is necessary. This was discussed with him. He understands. (2) Palpitations: Code(s): R00.2 - Palpitations Plan: Symptoms of palpitation also appear to be related to anxiety/panic attack. Advised to control these rather than treating with any pharmacotherapy. Avoidance of stimulants including alcohol was discussed. No other therapy is indicated at this point in time. Will follow up in the clinic if need be. Thank you for allowing me to partake in his care Medications: Changed From chlordiazepoxide HCl day 1 take 50 mg b.i.d.. Day 2 take 25 mg every 6 hours. states 3 take 25 mg b.i.d. day 4 take 25 mg at bedtime 50 mg (2 x 25 mg) PO Q8H PRN 11 caps 0RF alcohol withdrawal To chlordiazepoxide HCl day 1 take 50 mg b.i.d.. Day 2 take 25 mg every 6 hours. states 3 take 25 mg b.i.d. day 4 take 25 mg at bedtime 50 mg PO Q8H PRN alcohol withdrawal Coding Level of Care Code New Pt Level 3 (33853) Diagnoses Non-cardiac chest pain R07.89 Palpitations R00.2 CPT Codes EKG - CPT: 09098-[id number], Complete ([id number])
[2023-05-06 13:43] VITALS: BP 120/80; PULSE 87; BMI 27.8
== END 2023-05-06 14:09 | disposition home or self-care (01) ==
PROVIDERS: PCP Family Medicine; Visit Provider Internal Medicine Cardiovascular Disease
DX: R07.89 Other chest pain (principal); R00.2 Palpitations
CPT/HCPCS: 93010; 99213

== ENCOUNTER → 2023-05-06 13:17 | Outpatient (BNVA) | payer MEDICAID, SELFPAY | PROVIDERS: PCP Family Medicine; Visit Provider Internal Medicine Cardiovascular Disease | DX: R07.89 Other chest pain (principal); R00.2 Palpitations | CPT/HCPCS: 93005; 99212 ==

== ENCOUNTER 2023-07-11 09:43 | Outpatient (REF) | payer MEDICAID, SELFPAY ==
--- NOTE | ~2023-07-11 | US_ITS ---
EXAMINATION: US ABDOMEN COMPLETE CLINICAL INFORMATION: Daily alcohol use. COMPARISON: None available. TECHNIQUE: Real-time imaging of the abdominal viscera. Limited visualization due to bowel gas. FINDINGS: PANCREAS: Limited visualization of pancreatic tail and head. Imaged portion of pancreatic body is unremarkable. ABDOMINAL AORTA: Unremarkable. INFERIOR VENA CAVA: Visualized portions are normal. LIVER: Increased hepatic parenchymal heterogeneity and echogenicity could be associated with hepatocellular disease/hepatic steatosis and substantially limits visualization. Correlation with liver function tests and clinical exam recommended to determine further management. GALLBLADDER: No gallstones. No gallbladder wall thickening. COMMON BILE DUCT: Normal in caliber measuring 0.2 cm in diameter. RIGHT KIDNEY: Mild fullness right renal pelvis. No renal calculi. Limited visualization.. The kidney measures 10.5 cm in maximum dimension. LEFT KIDNEY: No hydronephrosis. No renal calculi. Limited visualization. The kidney measures 9.4 cm in maximum dimension. SPLEEN: Normal. The spleen measures 9.2 cm in maximum dimension. FREE FLUID: None. US/US abdomen complete IMPRESSION: 1. Increased hepatic parenchymal heterogeneity and echogenicity could be associated with hepatocellular disease/hepatic steatosis and substantially limits visualization. Correlation with liver function tests and clinical exam recommended to determine further management. 2. Mild fullness right renal pelvis. No renal calculi.
== END 2023-07-11 09:44 | disposition home or self-care (01) ==
LOC: HO.US 09:43
PROVIDERS: PCP Family Medicine; Visit Provider Family Medicine
DX: F10.29 Alcohol dependence with unspecified alcohol-induced disorder (principal)
CPT/HCPCS: 76700

== ENCOUNTER 2023-11-20 15:58 | Outpatient (REF) | payer MEDICAID, SELFPAY ==
--- NOTE | ~2023-11-20 | CT_ITS ---
EXAMINATION CT HEAD WITHOUT CONTRAST CLINICAL INFORMATION: Worsening frontotemporal headache COMPARISON: None TECHNIQUE: CT of the head was performed without intravenous contrast. Reformatted axial, coronal, and sagittal images were reviewed. This CT examination was performed using dose optimization techniques as appropriate, variously including the following: *Automated exposure control *Adjustment of mA and/or kV according to patient size (this includes techniques or standardized protocols for targeted exams where dose is matched to indication/reason for exam; i.e. extremities or head) *Use of iterative reconstruction technique DLP: 758 mGy-cm FINDINGS: No intracranial hemorrhage, extra-axial fluid collection, or midline shift is identified. Linares-white matter differentiation is preserved. The ventricles are within normal limits. Basal cisterns are within normal limits. Paranasal sinuses are clear. Mastoid air cells and middle ear cavities are clear. No acute calvarial fractures. CT/CT head/brain wo IV con IMPRESSION: No acute intracranial abnormality. Electronically signed by: Deandre Garcia DO 11/26/2023 10:35 PM EDT
== END 2023-11-20 15:59 | disposition home or self-care (01) ==
LOC: HO.CT 15:58
PROVIDERS: PCP Family Medicine; Visit Provider Family Medicine
DX: G43.909 Migraine, unspecified, not intractable, without status migrainosus (principal)
CPT/HCPCS: 70450

== ENCOUNTER 2024-04-12 10:05 | Outpatient (REF) | payer MEDICAID, SELFPAY ==
--- NOTE | ~2024-04-12 | XR_ITS ---
EXAMINATION: XR CERVICAL SPINE CLINICAL INFORMATION: PAIN COMPARISON: 02/25/2023. TECHNIQUE: 3 views of the cervical spine were obtained. FINDINGS: There is normal lordosis. There is no scoliosis. There is no fracture, compression deformity, traumatic malalignment, or suspicious bone lesions. Craniocervical junction and C1-2 articulation are intact and normally aligned. Mild disc degeneration is evident at C5-6 and C6-7. Normal facet alignment. There are early multilevel degenerative facet changes. No prevertebral soft tissue abnormalities. Lung apices clear. XR/XR cervical spine 3V IMPRESSION: 1. No acute finding cervical spine. 2. Mild disc degeneration C5-6 and C6-7. Early facet degeneration. Electronically signed by: Ousmane Ballesteros MD 04/12/2024 10:39 AM [facility]
--- OUTSIDE RECORDS SUMMARY | 2024-04-12 10:45 | XMS_ITS | Encounter Summary ---
Author Organization [facility] Address [address] [place] [address] Care Team Providers Care Relay Dispatcher Name Role Phone Pao Aden DO Primary Care Provider + [phone] Reason for Referral * Neurology (Routine) - Authorized Specialty Diagnoses / Procedures Referred By Clare t Referred To Contact Diagnoses Chronic neck and back pain Procedures Nerve conduction test Pao Aden DO [address] [place] [address] Phone: tel: fax: [address] Phone: tel: fax: Referral ID Status Reason Start Date Expiration Date V isits Requested Visits Authorized [id number] Authorized 04/05/2024 04/05/2025 1 1 * Neurology (Routine) - Authorized Specialty Diagnoses / Procedures Referred By Contac t Referred To Contact Diagnoses Chronic neck and back pain Procedures EMG Pao Aden DO [address] [place] [address] Phone: tel: fax: [address] Phone: tel: fax: Referral ID Status Reason Start Date Expiration Date V isits Requested Visits Authorized [id number] Authorized 04/05/2024 04/05/2025 1 1 * Consultation (Routine) - Pending Review Specialty Diagnoses / Procedures Referred By Clare rocha Referred To Contact Physical Therapy Diagnoses Chronic neck and back pain Pao Aden DO [address] [place] [address] Phone: tel: fax: Referral ID Status Reason Start Date Expiration Date Visits Requested Visits Authorized [id number] Pending Review Specialty Services Required 04/05/2024 04/05/2025 1 1 Encounter Details Date Type Department Care Team (Late st Contact Info) Description 04/05/2024 10:45 AM EST Office Visit [facility] [address] [place] [phone] Pao Aden DO [address] [place] [phone] Generalized anxiety disorder (Primary Dx); Palpitations; Alcohol dependence with unspecified alcohol-induced disorder (CMS/HCC); Chronic migraine; Leukopenia, unspecified type; Low TSH level; Chronic neck and back pain; Epigastric pain; Healthcare maintenance; Frequent headaches Social History Tobacco Use Types Packs/Day Years Used Date Smoking Tobacco: Every Day Cigarettes Passive Smoke Exposure: Current Smokeless Tobacco: Never Tobacco Cessation:Ready to Q uit: Not Asked; Counseling Given: Not Answered Alcohol Use Standard Drinks/Week Comments Yes 1 (1 standard drink = 0.6 oz pur e alcohol) Alcohol Answer Date Recorded How often do you have a drink containing alcohol ? 3 04/05/2024 How many drinks containing a lcohol do you have on a typical day when you are drinking? 0 04/05/2024 Frequency of Binge Drinking Not on file 03/11 Depression Answer Date Recorded Patient Health Questionnaire-9 Score 9 10/27/2023 Patient Health Questionnaire-9 Score 9 10/27/2023 Last PHQ-9: Questionnaire Data Not on file 0 10/27/2023 Housing Stability Answer Date Recorded What is your housing situation today? I have jennifer abca 06/19/[address] you li ve. Do you have problems with any of the following? None of the above 06/19/2023 Food Insecurity Answer Date Recorded Within the past 12 months, y ou worried that your food would run out before you got money to buy more: Sometimes True 2023 Within the past 12 months,th e food you bought just didn't last and you didn't have enough money to get more: Sometimes True 06/19/2023 Transportation Answer Date Recorded In the past 12 months, has l ack of transportation kept you from medical appts, meetings, work or from getting things needed for daily living? No 06/19/2023 Utilities Answer Date Recorded In the past 12 months, has t he electric, gas, oil or water company threatened to shut off services in your home? No 06/19/2023 Depression Answer Date Recorded Patient Health Questionnaire-2 Score 2 10/27/2023 Sex and Gender Information Value Date Recorded Sex Assigned at Male 01/07/2022 10:14 AM EDT Legal Sex Male 10:14 AM EDT Gender Identity Male 01/07/2022 10:14 AM EDT Sexual Orientation Straight 01/07/2022 10 :14 AM EDT documented as of this encounter Last Filed Vital Signs Vital Sign Reading Time Taken Comments Blood Pressure 110/60 04/05/2024 10:50 AM EST Pulse 79 04/05/2024 10:50 AM EST Temperature 36.7 ??C (98.1 ??F) 04/05/2024 10:[address] Respiratory Rate 18 04/05/2024 10:50 AM EST Oxygen Saturation - - Inhaled Oxygen Concentration - - Weight 61 kg (134 lb 6 oz) 04/05/2024 10:[address] Height 157.5 cm (5' 2 ) 04/05/2024 10:50 AM EST Body Mass Index 24.58 04/05/2024 10:50 AM EST documented in this encounter Plan of Treatment Upcoming Encounters Date Type Department Care Team (Late st Contact Info) Description 05/10/2024 10:30 AM EST Office Visit [facility] [address] [place] [address] Meet Patiño DDS [address] [place] [address] Scheduled Orders Name Type Priority Associated Diagnoses Orde r Schedule XR Cervical Spine 2-3 Views Imaging Routine Chronic neck and back pain Expected: 04/05/2024, Expires: 04/05/2025 EMG Neurology Routine Chronic neck and back pain Expected: 04/05/2024 (Approximate), Expires: 04/05/2025 Nerve conduction test Neurology Routine Chronic neck and back pain Expected: 04/05/2024 (Approximate), Expires: 04/05/2025 Scheduled Referrals Name Type Priority Associated Diagnoses Orde r Schedule Referral to Physical Therapy Outpatient Referral Routine Chronic neck and back pain Expected: 04/05/2024 (Approximate), Expires: 04/05/2025 documented as of this encounter Visit Diagnoses Diagnosis Generalized anxiety disorder- Primary Palpitations Alcohol dependence with unspecified alcohol-induced disorder (CMS/HCC) Chronic migraine Leukopenia, unspecified type Low TSH level Chronic neck and back pain Epigastric pain Abdominal pain, epigastric Healthcare maintenance Frequent headaches documented in this encounter Additional Health Concerns Assessment Noted Time PHQ-9 Depression Total Score: 9 10/27/19 10:53 AM EDT documented as of this encounter Care Teams Relay Dispatcher Relationship Specialty Start Date End Date Pao Aden DO [address] [place] [phone] PCP - General Family Medicine 03/10/18 Adamaris Gilbert Cook Specialty Foreign [employer] 05/16/23 Adamaris Gilbert Cook Specialty [employer] 02/27/24 documented as of this encounter
--- OUTSIDE RECORDS SUMMARY | 2024-04-12 10:45 | XMS_ITS | Encounter Summary ---
Author Organization [employer] Address [address] [place] [address] Care Team Providers Care Car Sales Associate Name Role Phone MarkiePao Primary Care Provider + [phone] Reason for Visit * Reason Comments Dental Pain Patient thinks that he has an infection Encounter Details Date Type Department Care Team ([facility] st Contact Info) Description 03/22/2024 9:30 AM EST Office Visit [facility] [address] [place] [address] Meet Patiño DDS [address] [place] [address] Odontalgia (Primary Dx); Dental caries extending into pulp Social History Tobacco Use Types Packs/Day Years Used Date Smoking Tobacco: Every Day Cigarettes Passive Smoke Exposure: Current Smokeless Tobacco: Never Alcohol Use Standard Drinks/Week Comments Yes 1 (1 standard drink = 0.6 oz pur e alcohol) Depression Answer Date Recorded Patient Health Questionnaire-9 Score 9 10/27/2023 Patient Health Questionnaire-9 Score 9 10/27/2023 Last PHQ-9: Questionnaire Data Not on file 0 10/27/2023 Housing Stability Answer Date Recorded What is your housing situation today? I have jennifer baca 06/19/[address] you li [...] Sign Reading Time Taken Comments Blood Pressure 100/72 03/22/2024 9:20 AM EST Pulse - - Temperature - - Respiratory Rate - - Oxygen Saturation - - Inhaled Oxygen Concentration - - Weight - - Height - - Body Mass Index - - documented in this encounter Progress Notes * Meet Patiño DDS - 03/22/2024 9:30 AM EST Dental procedures in this visit D0220 - INTRAORAL - PERIAPICAL FIRST RADIOGRAPHIC IMAGE (Completed) Service provider: Meet Patiño DDS Billing provider: Meet Patiño DDS D0230 - INTRAORAL - PERIAPICAL EACH ADDITIONAL RADIOGRAPHIC IMAGE (Completed) Service provider: Meet Patiño DDS [place] provider: Meet Patiño DDS D0230 - INTRAORAL - PERIAPICAL EACH ADDITIONAL RADIOGRAPHIC IMAGE (Completed) Service provider: Meet Patiño DDS Billing provider: Meet Patiño DDS D9450 - CASE PRESENTATION, DETAILED AND EXTENSIVE TREATMENT PLANNING (Completed) Service provider: Meet Patiño DDS [place] provider: Meet Patiño DDS D9110 - PALLIATIVE (EMERGENCY) TREATMENT OF DENTAL PAIN - MINOR PROCEDURE (Completed) Service provider: Meet Patiño DDS Billing provider: Meet Patiño DDS Patient ID: Mark Moore is a 38 y.o. male. Time Out: Timeout Date: 03/22/24, Timeout Time: 923 (Dental Emergency exam) Location: [facility] Tooth: Maxilla, Mandible, and #2 Procedure: X-rays and Emergency Verified the above with patient, housing assistant property manager, and provider. Confirmed via patient's chart, intraorally and by radiographs. Grooming Assistant: not applicable Chief Complaint Patient presents with Dental Pain Patient thinks that he has an infection Medical Hx: Vitals: Blood pressure 100/72. Past Medical History: Diagnosis Date Anxiety Asthma Medications: Outpatient Encounter Medications as of 03/22/2024 Medication Sig Dispense Refill EPINEPHrine (Epipen) 0.3 MG/0.3ML injection syringe INJECT INTRAMUSCULARLY DIRECTED ON PACKAGE AND GO TO EMERGENCY ROOM famotidine (Pepcid) 20 MG tablet TAKE 1 TABLET BY MOUTH TWICE DAILY 180 tablet 1 FLUoxetine (PROzac) 20 MG capsule Take 20 mg by mouth in the morning. gabapentin (Neurontin) 100 MG capsule TAKE 1 CAPSULE BY MOUTH THREE TIMES DAILY NEEDED FOR ANXIETY hydrOXYzine pamoate (Vistaril) 25 MG capsule TAKE 1 CAPSULE BY MOUTH THREE TIMES DAILY NEEDED FOR ANXIETY OR FOR SLEEP lidocaine (Lidoderm) 5 % patch Apply 2 patches topically Once per day. Remove & discard patch within 12 hours or as directed by MD. 60 patch 3 SUMAtriptan (Imitrex) 25 MG tablet Take 1 tablet (25 mg) by mouth 1 (one) time if needed for migraine. May repeat dose once in 2 hours if no relief. Do not exceed 2 doses in 24 hours. 9 tablet 0 [DISCONTINUED] acetaminophen (Tylenol) 500 MG tablet Take 2 tablets (1,000 mg) by mouth every 6 (six) hours if needed for moderate pain or fever for up to 25 doses. 30 tablet 0 acetaminophen (Tylenol 8 Hour) 650 MG ER tablet Take 1 tablet (650 mg) by mouth every 8 (eight) hours if needed for moderate pain for up to 10 days. Do not crush, chew, or split. 30 tablet 0 amoxicillin (Amoxil) 500 MG capsule Take 1 capsule (500 mg) by mouth every 8 (eight) hours for 7 days. 21 capsule 0 baclofen (Lioresal) 10 MG tablet Take 1 tablet (10 mg) by mouth 3 times daily. (Patient not taking:Reported on 03/22/2024) 30 tablet 0 fluticasone (Flonase) 50 MCG/ACT nasal spray Administer 2 sprays into each nostril Once per day. Shake gently. Before first use, prime pump. After use, clean tip and replace cap. (Patient not taking:Reported on 03/22/2024) 16 g 3 loratadine (Claritin) 10 MG tablet Take 1 tablet (10 mg) by mouth Once per day. 30 tablet 3 No facility-administered encounter medications on file as of 03/22/2024. Subjective: Pain: intermittent Duration: > 5 days Objective: Tooth: #2 Radiographs Taken: PA(s) Radiographic Findings: Decay, Periapical Radiolucency, and Fractured/Broken Tooth Clinical Findings: Multiple carious teeth, previously Dx and planned for extractions. Swelling: Tenderness and Intraoral swelling Endo Testing: N/A Perio: Erythematous gingival regions Other Findings: Situational anxiety Diagnosis: Caries into pulp Assessment/Plan: EOE X Rays Prescription to control infection Prescriptions: Sent to [facility] on file Pt tolerated procedure well, all questions answered. Dismissed in good condition. NV: Exo # 2 ONLY per pt request Assistant Gm Of Content & Delivery: Denise Bennett Dentist: Meet Patiño DDS documented in this encounter Plan of Treatment Upcoming Encounters Date Type Department Care Team (Late st Contact Info) Description 05/10/2024 10:30 AM EST Office Visit [facility] [address] [place] [address] Meet Patiño DDS [address] [place] [address] Scheduled Orders Name Type Priority Associated Diagnoses Orde r Schedule 2 2 EXTRACTION, ERUPTED TOOTH REQUIRING REMOVAL OF BONE AND/OR SECTIONING OF TOOTH, AND INCLUDING ELEVATION OF MUCOPERIOSTEAL FLAP IF INDICATED Dental Routine [address] [facility] 03/22/2024 3 3 EXTRACTION, ERUPTED TOOTH OR EXPOSED ROOT (ELEVATION AND/OR FORCEPS REMOVAL) Dental Routine [address] [facility] 03/22/2024 31 31 EXTRACTION, ERUPTED TOOTH REQUIRING REMOVAL OF BONE AND/OR SECTIONING OF TOOTH, AND INCLUDING ELEVATION OF MUCOPERIOSTEAL FLAP IF INDICATED Dental Routine [address] [facility] 03/22/2024 32 32 EXTRACTION, ERUPTED TOOTH REQUIRING REMOVAL OF BONE AND/OR SECTIONING OF TOOTH, AND INCLUDING ELEVATION OF MUCOPERIOSTEAL FLAP IF INDICATED Dental Routine [address] [facility] 03/22/2024 documented as of this encounter Procedures Procedure Name Priority Date/Time Associated Diagnosis Comments ADJUNCTIVE GENERAL SERVICES - UNCLASSIFIED TREATMENT - PALLIATIVE TREATMENT OF DENTAL PAIN - PER VISIT Routine 03/22/2024 9:30 AM EST INTRAORAL - PERIAPICAL FIRST RADIOGRAPHIC IMAGE Routine 03/22/2024 9:30 AM EST INTRAORAL - PERIAPICAL EACH ADDITIONAL RADIOGRAPHIC IMAGE Routine 03/22/2024 9:30 AM EST INTRAORAL - PERIAPICAL EACH ADDITIONAL RADIOGRAPHIC IMAGE Routine 03/22/2024 9:30 AM EST ADJUNCTIVE GENERAL SERVICES - PROFESSIONAL VISITS - CASE PRESENTATION, SUBSEQUENT TO DETAILED AND EXTENSIVE TREATMENT PLANNING Routine 03/22/2024 9:30 AM EST documented in this encounter Visit Diagnoses Diagnosis Odontalgia- Primary Unspecified disorder of the teeth and supporting structures Dental caries extending into pulp documented in this encounter Additional Health Concerns Assessment Noted Time PHQ-9 Depression Total Score: 9 10/27/19 10:53 AM EDT documented as of this encounter Care Teams Car Sales Associate Relationship Specialty Start Date End Date Pao Aden DO [address] [place] [id number] PCP - General Family Medicine 03/10/18 Adamaris Gilbert [employer] 05/16/23 Adamaris Gilbert [employer] 02/27/24 documented as of this encounter
--- OUTSIDE RECORDS SUMMARY | 2024-04-12 10:45 | XMS_ITS | Clinical Summary ---
Author Organization [employer] Address [address] [place] [address] Care Team Providers Care Manager Resort Name Role Phone MarkiePao Primary Care Provider + [phone] Allergies Active Allergy Reactions Criticality Noted Date Comments Ibuprofen Hives,Other Low 07/09/2022 Pt presented to [facility] ED on d/t allergic reaction to ibuprofen causing hives on upper lower extremities and foreign body sensation in throat Medications * This document contains information received from the source organization and may not represent a complete record from that organization. hydrOXYzine pamoate (Vistaril) 25 MG capsule TAKE 1 CAPSULE BY MOUTH THREE TIMES DAILY NEEDED FOR ANXIETY OR FOR SLEEP 022 Active gabapentin (Neurontin) 100 MG capsule TAKE 1 CAPSULE BY MOUTH THREE TIMES DAILY NEEDED FOR ANXIETY 023 Active EPINEPHrine (Epipen) 0.3 MG/0.3ML injection syringe INJECT INTRAMUSCULARLY DIRECTED ON PACKAGE AND GO TO EMERGENCY ROOM 023 Active FLUoxetine (PROzac) 20 MG capsule Take 20 mg by mouth in the morning. 023 Active loratadine (Claritin) 10 MG tablet Take 1 tablet (10 mg) by mouth Once per day. 30 tablet 3 024 Active lidocaine (Lidoderm) 5 % patch Apply 2 patches topically Once per day. Remove & discard patch within 12 hours or as directed by MD. 60 patch 3 024 2024 Active famotidine (Pepcid) 20 MG tablet TAKE 1 TABLET BY MOUTH TWICE DAILY 180 tablet 1 024 Active topiramate (Topamax) 25 MG tablet Take 1 tablet (25 mg) by mouth at bedtime. 30 tablet 3 025 2025 Active SUMAtriptan (Imitrex) 25 MG tabletIndicat ions:Frequent headaches Take 1 tablet (25 mg) by mouth 1 (one) time if needed for migraine. May repeat dose once in 2 hours if no relief. Do not exceed 2 doses in 24 hours. 9 tablet 1 Active methocarbamol (Robaxin) 750 MG tablet Take 1 tablet (750 mg) by mouth if needed in the morning and at bedtime for muscle spasms. 40 tablet 1 025 2024 Active acetaminophen (Tylenol 8 Hour) 650 MG ER tablet Take 1 tablet (650 mg) by mouth every 8 (eight) hours if needed for moderate pain or mild pain. Do not crush, chew, or split. 40 tablet 1 025 2024 Active SUMAtriptan (Imitrex) 25 MG tabletIndicat ions:Frequent headaches Take 1 tablet (25 mg) by mouth 1 (one) time if needed for migraine. May repeat dose once in 2 hours if no relief. Do not exceed 2 doses in 24 hours. 9 tablet 023 2024 Discontinued(R kale (will not trigger notification to Pharmacy)) acetaminophen (Tylenol) 500 MG tablet Take 2 tablets (1,000 mg) by mouth every 6 (six) hours if needed for moderate pain or fever for up to 25 doses. 30 tablet 023 2024 Discontinued baclofen (Lioresal) 10 MG tablet Take 1 tablet (10 mg) by mouth 3 times daily. 30 tablet 023 2024 Discontinued(I neffective) fluticasone (Flonase) 50 MCG/ACT nasal spray Administer 2 sprays into each nostril Once per day. Shake gently. Before first use, prime pump. After use, clean tip and replace cap. 16 g 3 024 2024 Discontinued amoxicillin (Amoxil) 500 MG capsule Take 1 capsule (500 mg) by mouth every 8 (eight) hours for 7 days. 21 capsule 025 2024 Discontinued(T herapy completed) acetaminophen (Tylenol 8 Hour) 650 MG ER tablet Take 1 tablet (650 mg) by mouth every 8 (eight) hours if needed for moderate pain for up to 10 days. Do not crush, chew, or split. 30 tablet 025 2024 Discontinued(R eorder (will not trigger notification to Pharmacy)) Active Problems Problem Noted Date Diagnosed Date Dental caries extending into pulp 03/22/2024 Odontalgia 03/22/2024 Chronic neck and back pain 06/30/2023 Assessment & Plan (06/30/2023 2:24 PM EDT): -C-spine XR unremarkable FEB 2023 -T-spine XR unremarkable FEB 2023 -L-spine XR unremarkable FEB 2023 -encouraged standing doses of tylenol -encouraged baclofen to help with mm spasm -increase lidocaine to 2 patches daily -referred to chiropractor as requested -advised rtc if sx change or worsen Chronic migraine 02/12/2023 Assessment & Plan (06/30/2023 2:21 PM EDT): Intermittent sx, likely multifactorial -encouraged schedule f/u with dental -referred to optho for eval -he declines referral to PT -advised trial standing doses of gabapentin, will titrate next visit prn -continue imitrex prn -advised contact C if NICE change or worsen Alcohol dependence 05/10/2022 Assessment & Plan (06/30/2023 2:18 PM EDT): With continued daily drinking, he denies any withdrawal sx -LFTs nml NOV 2022 -referred for [facility] -review naltrexone use next visit -he declines referral to AUD/AA Healthcare maintenance 05/10/2022 History of COVID-19 05/10/2022 Agoraphobia 04/14/2017 Generalized anxiety disorder 09/18/2015 Assessment & Plan (06/30/2023 2:16 PM EDT): -he denies any SI/HI -he has the number for crisis -cont current med regimen as per psychiatry -f/u with Dr Dexter as scheduled Mood disorder 09/18/2015 Tobacco dependence 09/18/2015 Resolved Problems Problem Noted Date Diagnosed Date Resolved Date Anxiety 10/04/2022 10/04/2022 Heart palpitations 10/04/2022 3 Hyperthyroidism 10/04/2022 10/04/2022 Dysthymia 04/14/2017 02/12/2023 Encounters * This document contains information received from the source organization and may not represent a complete record from that organization. Date Type Department Care Team Description 04/12/2024 Orders Only [facility] [address] [place] [phone] Pao Aden DO 04/06/2024 Telephone [facility] [address] [place] [address] Meet Patiño DDS 04/05/2024 10:45 AM EST Office Visit [facility] [address] [place] [address] 49889 Pao Aden DO Generalized anxiety disorder (Primary Dx); Palpitations; Alcohol dependence with unspecified alcohol-induced disorder (CMS/HCC); Chronic migraine; Leukopenia, unspecified type; Low TSH level; Chronic neck and back pain; Epigastric pain; Healthcare maintenance; Frequent headaches 04/05/2024 Travel 03/22/2024 9:30 AM EST Office Visit [facility] [address] [place] [address] Meet Patiño DDS Odontalgia (Primary Dx); Dental caries extending into pulp 02/27/2024 Telephone [facility] [address] [place] [phone] Pao Aden DO Care Coordination (ICP ) 02/22/2024 Refill [facility] [address] [place] [address] [phone] Dane Perez MD from Last 3 Months Immunizations Name Administration Dates Next Due DTaP 02/09/1992, 8,03/24/1987,1986,1986 Hep B, Adolescent or Pediatric 05/05/2000,1998,10/27/1997 Hib (HbOC) 05/25/1988 IPV 02/09/1992, 8,1986,1986 MMR 05/05/2000 MMRV 06/02/1987 TD (adult), 2 Lf tetanus tox oid, preservative free, adsorbed 09/21/1998 Family History Medical History Relation Name Comments Asthma Father COPD Father Hypertension Mother Migraines Mother Cancer Mother's Brother Depression Mother's Brother Diabetes Mother's Brother Congenital heart disease Son Relation Name Status Comments Father Mother Mother's Brother Son Social History Tobacco Use Types Packs/Day Years [...] Orientation Straight 01/07/2022 10 :14 AM EDT Last Filed Vital Signs Vital Sign Reading Time Taken Comments Blood Pressure 110/60 04/05/2024 10:50 AM EST Pulse 79 04/05/2024 10:50 AM EST Temperature 36.7 ??C (98.1 ??F) 04/05/2024 10:[address] Respiratory Rate 18 04/05/2024 10:50 AM EST Oxygen Saturation 98% 12/31/2023 9:06 AM EDT Inhaled Oxygen Concentration - - Weight 61 kg (134 lb 6 oz) 04/05/2024 10:[address] Height 157.5 cm (5' 2 ) 04/05/2024 10:50 AM EST Body Mass Index 24.58 04/05/2024 10:50 AM EST Plan of Treatment Upcoming Encounters Date Type Department Care Team (Late st Contact Info) Description 05/10/2024 10:30 AM EST Office Visit [facility] [address], [place] [phone] Meet Patiño, DDS [address] [place] [address] Health Maintenance Due Date Last Done Comments Dental Prophylaxis 1986 DTaP/Tdap/Td Vaccines (6 - Tdap) 09/22/1998 09/21/1998, 02/09/1992, 12/28/1987, Additional history exists Family Planning (PISQ) 2001 Hepatitis A Vaccines (1 of 2 - Risk 2-dose series) 2005 Pneumococcal Vaccine: Pediatrics (0 to 5 Years) and At-Risk Patients (6 to 49) Years) (1 of 2 - PCV) 2005 Dental Oral Exam 05/25/2021 11/24/2020 Dental X-Ray: Bitewings 11/25/2021 11/24/2020, 01/16 COVID-19 Vaccine ( - season) 2023 Influenza Vaccine (#1) 2023 Dental X-Ray: Full Mouth 11/26/2023 11/24/2020, 06/2020 Depression Monitoring (PHQ-9) 04/28/2024 10/27/2023, 10/27/2023 SDOH Screening 06/18/2024 06/19/2023 Depression Screening 10/26/2024 10/27/2023, 10/27/19 Alcohol/Substance Use Screening 04/05/2025 04/05/2024 Tobacco Screening 04/05/2025 04/05/2024 Lipid Panel 11/29/2027 11/28/2022, 03/08/2020 Zoster Vaccines (1 of 2) 2036 RSV Patients and Patients Aged 60 years or older (1 - 1-dose 75+ series) 2061 HIB Vaccines Completed 05/25/1988 IPV Vaccines Completed 02/09/1992, 12/09, 1986, Additional history exists Hepatitis B Vaccines Completed 05/05/2000, 09/21/1998, 10/27/1997 HIV Screening Completed 11/28/2022, 03/08/2020 Hepatitis C Screening Completed 11/28/2022, 020 HPV Vaccines Aged Out No longer eligi ble based on patient's age to complete this topic Meningococcal Vaccine Aged Out No shanice ramírez eligible based on patient's age to complete this topic RSV under 20 months Aged Out No longe r eligible based on patient's age to complete this topic Rotavirus Vaccines Aged Out No longer eligible based on patient's age to complete this topic Procedures Procedure Name Priority Date/Time Associated Diagnosis Comments XR CERVICAL SPINE 3V Routine 04/12/2024 10:07 AM EST ADJUNCTIVE GENERAL SERVICES - UNCLASSIFIED TREATMENT - PALLIATIVE TREATMENT OF DENTAL PAIN - PER VISIT Routine 03/22/2024 9:30 AM EST ADJUNCTIVE GENERAL SERVICES - PROFESSIONAL VISITS - CASE PRESENTATION, SUBSEQUENT TO DETAILED AND EXTENSIVE TREATMENT PLANNING Routine 03/22/2024 9:30 AM EST INTRAORAL - PERIAPICAL EACH ADDITIONAL RADIOGRAPHIC IMAGE Routine 03/22/2024 9:30 AM EST INTRAORAL - PERIAPICAL EACH ADDITIONAL RADIOGRAPHIC IMAGE Routine 03/22/2024 9:30 AM EST INTRAORAL - PERIAPICAL FIRST RADIOGRAPHIC IMAGE Routine 03/22/2024 9:30 AM EST HEPATITIS C AB W/REFL TO HCV RNA, QN, PCR Routine 11/28/2022 10:55 AM EDT HIV ANTIBODY/ANTIGEN ([place] [facility]) Routine 11/28/2022 10:55 AM EDT LIPID PANEL, STANDARD Routine 11/28/2022 10:55 AM EDT Palpitations Anxiety DIAGNOSTIC - DIAGNOSTIC IMAGING - INTRAORAL - COMPREHENSIVE SERIES OF RADIOGRAPHIC IMAGES Routine 11/24/2020 12:00 AM EDT COMPREHENSIVE ORAL EVALUATION - NEW OR ESTABLISHED PATIENT Routine 11/24/2020 12:00 AM EDT from Last 3 Months or Most Recently Relevant to Health Maintenance Results * XR CERVICAL SPINE 3V (04/12/2024 10:07 AM EST) Anatomical Region Laterality Modality Abdomen Radiographic Deysi ging 04/12/2024 10:0 7 AM EST Narrative 04/12/2024 10:42 AM EST ?[facility] ?[address] ?[place] [address] ?XRay Report ? Signed ? Patient: Mark Moore ?MR#: [id number] ? : 1985 ?Acct:[id number] ? Age/Sex: 38 / M ?ADM Date: 04/12/24 ? Loc: HO.HHCX ? Attending Dr: Pao Aden DO ? Ordering Physician: Pao Aden DO ?? Date of Service: 04/12/24 ?? Procedure(s): XR cervical spine 3V ?? Accession Number(s): [id number] ? cc: Pao Aden DO ? EXAMINATION: ?? XR CERVICAL SPINE ? CLINICAL INFORMATION: ?? PAIN ? COMPARISON: ?? 02/25/2023. ? TECHNIQUE: ?? 3 views of the cervical spine were obtained. ? FINDINGS: ?? There is normal lordosis. There is no scoliosis. ?? There is no fracture, compression deformity, traumatic malalignment, or ?? suspicious bone lesions. ?? Craniocervical junction and C1-2 articulation are intact and normally ?? aligned. ?? Mild disc degeneration is evident at C5-6 and C6-7. ?? Normal facet alignment. There are early multilevel degenerative facet ?? changes. ? No prevertebral soft tissue abnormalities. Lung apices clear. ? XR/XR cervical spine 3V ?? IMPRESSION: ?? 1. No acute finding cervical spine. ?? 2. Mild disc degeneration C5-6 and C6-7. Early facet degeneration. ? Electronically signed by: ??Ousmane Ballesteros MD ??04/12/2024 10:39 AM EST RP ? Dictated By: ?Ousmane Ballesteros MD ? Signed By: ?<Electronically signed by Ousmane Ballesteros MD in OV> ?04/12/249 ? DD/ 1007 ? TD/TT: 04/12/24 1020 ? Singeing Torch Operator: ? Procedure Note Jaydenolivergenevaeddie, Moses - 04/12/2024 [place] [address] XRay Report Signed Patient: Anabella Moore#: [id number] : 1985Acct:[id number] Age/Sex: 38 / MADM Date: 04/12/24 Loc: HO.HHCX Attending Dr: Pao Aden DO Ordering Physician: Pao Aden DO Date of Service: 04/12/24 Procedure(s): XR cervical spine 3V Accession Number(s): [id number] cc: Pao Aden DO EXAMINATION: XR CERVICAL SPINE CLINICAL INFORMATION: PAIN COMPARISON: 02/25/2023. TECHNIQUE: 3 views of the cervical spine were obtained. FINDINGS: There is normal lordosis. There is no scoliosis. There is no fracture, compression deformity, traumatic malalignment, or suspicious bone lesions. Craniocervical junction and C1-2 articulation are intact and normally aligned. Mild disc degeneration is evident at C5-6 and C6-7. Normal facet alignment. There are early multilevel degenerative facet changes. No prevertebral soft tissue abnormalities. Lung apices clear. XR/XR cervical spine 3V IMPRESSION: 1. No acute finding cervical spine. 2. Mild disc degeneration C5-6 and C6-7. Early facet degeneration. Electronically signed by: Ousmane Ballesteros MD 04/12/2024 10:39 AM EST RP Dictated By: Ousmane Ballesteros MD Signed By: <Electronically signed by Ousmane Ballesteros MD in OV> 04/12/24 1039 DD/ 1007 TD/TT: 04/12/24 1020 Singeing Torch Operator: us Pao Aden DO IMG XR PROCEDURES Final Resu lt * HIV Ab/Ag ([facility]) (11/28/2022 10:55 AM EDT) HIV AB/AG Nonreactive Nonreactive [facility] Comment:HIV-1 p24 Ag and/or HIV-1/HIV-2 Ab not detected.A test result that is nonreactive does not exclude thepossibility of exposure to or infection with HIV-1 and/orHIV-2. Nonreactive results in this assay for individualswith prior exposure to HIV-1 and/or HIV-2 may be due toantigen and antibody levels that are below the limit ofdetection of this assay.The [employer] HIV Ag/Ab Combo assay result andsupplemental assay results should be interpreted inconjunction with the patient's clinical presentation,history and other laboratory results. If the results areinconsistent with clinical evidence, additional testing issuggested to confirm the result. 11/28/2022 10:5 5 AM EDT 11/28/2022 1:00 PM EDT us Pao Aden DO LAB BLOOD ORDERABLES Final R esult [facility] [address] [place] [address] [phone] * Hepatitis C Antibody with Reflex to HCV, RNA, Quantitative, Real-Time PCR (11/28/2022 10:55 AM EDT) Hepatitis C Antibody Nonreactive Nonreactive [facility] Comment:Antibodies to HCV no t detected; does not exclude early acuteHCV infection. 11/28/2022 10:5 5 AM EDT 11/28/2022 1:00 PM EDT us Pao Aden DO LAB BLOOD ORDERABLES Final R esult Performing Organization Address [facility] Co de Phone Number [facility] [address] [place] [address] [phone] * Lipid Panel, Standard (11/28/2022 10:55 AM EDT) Triglycerides 71 <150 mg/dL [facility] Comment:Desirable Triglyceri de: less than 150 mg/dLBorderline High Triglyceride 150-199 mg/dLHigh Triglyceride: 200-499 mg/dLVery High Triglyceride: greater than or equal to 5OO mg/dL Cholesterol 150 <200 mg/dL [facility] Comment:Desirable Cholestero l: less than 200 mg/dLBorderline High Cholesterol: 200-239 mg/dLHigh Cholesterol: greater than 239 mg/dL LDL Cholesterol Calculated 75 <100 mg/dL [facility] Comment:Desirable LDL: less than 100 mg/dLNear Optimal/Above Optimal LDL: 110- 129 mg/dLBorderline High LDL: 130-159 mg/dLHigh LDL: 160-189 mg/dLVery High LDL: greater than or equal to 190 mg/dL HDL Cholesterol 61 >40 mg/dL [facility] Comment:Desirable HDL: great er than 40 mg/dL Note: This HDL assay may give artificially low results in patients with liver disease. Blood Venous blood specimen / Unknown 11/28/2022 10:55 AM EDT 11/28/2022 1:00 PM EDT us Pao Aden DO LAB BLOOD ORDERABLES Final R esult Performing Organization Address City/[facility]/ZIP Co de Phone Number [facility] [address] [place] [address] [phone] from Last 3 Months or Most Recently Relevant to Health Maintenance Insurance [place] AD[place] Care Teams Manager Resort Relationship Specialty Start Date End Date Pao Aden DO [address] [place] [address] [phone] PCP - General Family Medicine 03/10/18 Adamaris Gilbert Tower ObserverRoute Manager 05/16/23 Adamaris Gilbert Tower ObserverRoute Manager 02/27/24
--- OUTSIDE RECORDS SUMMARY | 2024-04-12 10:45 | XMS_ITS | Encounter Summary ---
Author Organization [employer] Address [address] [place] [address] Care Team Providers Care Real Estate Attorney Name Role Phone Pao Aden DO Primary Care Provider + [phone] Encounter Details Date Type Department Care Team ([facility] Contact Info) Description 04/06/2024 Telephone [facility] [address] [place] [address] Meet Patiño DDS [address] [place] [address] Social History Tobacco Use Types Packs/Day Years [...] AM EDT documented as of this encounter Miscellaneous Notes * Telephone Encounter - Marguerite Gautam - 04/06/2024 9:40 AM EST Called patient due to a cancellation so he can have his extraction sooner but patient said that he couldn't come today so kept his original appointment. documented in this encounter Plan of Treatment Upcoming Encounters Date Type Department Care Team (Late st Contact Info) Description 05/10/2024 10:30 AM EST Office Visit [facility] [address] [place] [address] Meet Patiño DDS [address] [place] [address] documented as of this encounter Visit Diagnoses Not on filedocumented in this encounter Additional Health Concerns Assessment Noted Time PHQ-9 Depression Total Score: 9 10/27/19 24 10:53 AM EDT documented as of this encounter Care Teams Real Estate Attorney Relationship Specialty Start Date End Date Pao Aden DO [address] [place] [address] PCP - General Family Medicine 03/10/18 Adamaris Gilbert Eligibility ConsultantReinsurance Claim Analyst 05/16/23 Adamaris Gilbert Eligibility ConsultantReinsurance Claim Analyst 02/27/24 documented as of this encounter
--- OUTSIDE RECORDS SUMMARY | 2024-04-12 10:45 | XMS_ITS | Encounter Summary ---
Author Organization [employer] Address [address] [place] [address] Care Team Providers Care Demolitionist Name Role Phone SmithaPao fuentes Primary Care Provider + [phone] Encounter Details Date Type Department Care Team (Latest Contact Info) Description 04/05/2024 Travel Social History Tobacco Use Types Packs/Day Years [...] AM EDT documented as of this encounter Plan of Treatment Upcoming Encounters Date Type Department Care Team (Late st Contact Info) Description 05/10/2024 10:30 AM EST Office Visit [facility] [address] [place] [address] Meet Patiño DDS [address] [place] [address] documented as of this encounter Visit Diagnoses Not on filedocumented in this encounter Additional Health Concerns Assessment Noted Time PHQ-9 Depression Total Score: 9 10/27/19 10:53 AM EDT documented as of this encounter Care Teams Demolitionist Relationship Specialty Start Date End Date Pao Aden DO [address] [place] [address] PCP - General Family Medicine 03/10/18 Adamaris Gilbert Transportation Equipment PainterSupply Chain Manager 05/16/23 Adamaris Gilbert Transportation Equipment PainterSupply Chain Manager 02/27/24 documented as of this encounter
--- OUTSIDE RECORDS SUMMARY | 2024-04-12 10:45 | XMS_ITS | Encounter Summary ---
Author Organization [employer] Address [address] [place] [address] Care Team Providers Care Retail Support Specialist Name Role Phone Pao Aden DO Primary Care Provider + [phone] Encounter Details Date Type Department Care Team ([facility] st Contact Info) Description 06/10/2023 Telephone [facility] [address] [place] [address] Pao Aden DO [address] [place] [address] Social History Tobacco Use Types Packs/Day Years Used Date Smoking Tobacco: Every Day Cigarettes Passive Smoke Exposure: Current Smokeless Tobacco: Never Alcohol Use Standard Drinks/Week Comments Yes 1 (1 standard drink = 0.6 oz pur e alcohol) Depression Answer Date Recorded Patient Health Questionnaire-9 Score 7 05/10/2022 Housing Stability Answer Date Recorded What is your housing situation today? I have jennifer baca 12/25/[address] you li ve. Do you have problems with any of the following? None of the above 12/25/2022 Food Insecurity Answer Date Recorded Within the past 12 months, y ou worried that your food would run out before you got money to buy more: Never True 12/25/2022 Within the past 12 months,th e food you bought just didn't last and you didn't have enough money to get more: Never True Transportation Answer Date Recorded In the past 12 months, has l ack of transportation kept you from medical appts, meetings, work or from getting things needed for daily living? No 12/25/2022 Utilities Answer Date Recorded In the past 12 months, has t he electric, gas, oil or water company threatened to shut off services in your home? No 12/25/2022 Depression Answer Date Recorded Patient Health Questionnaire-2 Score 4 05/10/2022 Sex and Gender Information Value Date Recorded Sex Assigned at Male 01/07/2022 10:14 AM EDT Legal Sex Male 10:14 AM EDT Gender Identity Male 01/07/2022 10:14 AM EDT Sexual Orientation Straight 01/07/2022 10 :14 AM EDT documented as of this encounter Plan of Treatment Upcoming Encounters Date Type Department Care Team (Late st Contact Info) Description 05/10/2024 10:30 AM EST Office Visit [facility] [address] [place], [place] [phone] Meet Patiño DDS [address] [place] [address] documented as of this encounter Visit Diagnoses Not on filedocumented in this encounter Additional Health Concerns Assessment Noted Time PHQ-9 Depression Total Score: 7 05/11/19 23 9:17 AM EST documented as of this encounter Care Teams Retail Support Specialist Relationship Specialty Start Date End Date Pao Aden DO [address] [place], [place] [phone] PCP - General Family Medicine 03/10/18 Adamaris Gilbert Seed Yeast OperatorManager Community Relations 05/16/23 Adamaris Gilbert Seed Yeast OperatorManager Community Relations 02/27/24 documented as of this encounter
[2024-04-12 11:34] LABS: MANUAL DIFF FLAG NO
[2024-04-12 11:40] LABS: Basophils Percent Auto 0.4 % (0-2); Eosinophils Absolute Auto 0.1 X10*3/uL (0.0-0.4); Eosinophils Percent Auto 1.5 % (0-4); Hematocrit 46.3 % (42.0-52.0); Hemoglobin 15.6 g/dl (14.0-18.0); Imm Gran Abs Auto 0.01 X10*3/uL (0.00-0.03); Imm Gran Pct Auto 0.2 % (0.0-0.4); Lymphocytes Absolute Auto 1.8 X10*3/uL (1.2-4.9); Lymphocytes Percent Auto 40.2 % (20-40); Mean Corpuscular HGB Conc 33.7 g/dl (31.0-36.0); Mean Corpuscular Hemoglobin 29.2 pg (27.0-33.0); Mean Corpuscular Volume 86.5 fL (80.0-98.0); Mean Platelet Volume 11.8 fL (9.4-12.4); Monocytes Absolute Auto 0.3 X10*3/uL (0.1-1.2); Monocytes Percent Auto 6.8 % (2-11); Neutrophils Absolute Auto 2.3 x10*3/uL (2.0-8.3); Neutrophils Percent Auto 50.9 % (45-73); Platelet Count 213 X10*3/uL (160-400); Red Blood Count 5.35 X10*6/uL (4.60-5.80); Red Cell Distribution Width 12.8 % (11.0-16.0); White Blood Count 4.5 X10*3/uL (4.8-10.8)
[2024-04-12 12:02] LABS: Estimated Average Glucose 97 mg/dL; Total Hemoglobin (HGBA1C) 4147.2554 umol/L
[2024-04-12 12:16] LABS: Alanine Aminotransferase 23 U/L (0-40); Albumin Level 4.4 g/dL (3.5-5.0); Alkaline Phosphatase 68 U/L (39-117); Anion Gap 10 (12-20); Aspartate Amino Transferase 25 U/L (5-37); Bilirubin Direct 0.2 mg/dL (0.0-0.5); Bilirubin Total 0.7 mg/dL (0.0-1.0); Blood Urea Nitrogen 10 mg/dL (9-16); Calcium 9.7 mg/dL (8.4-10.2); Carbon Dioxide 27 mmol/L (22-29); Chloride 106 mmol/L (96-108); Cholesterol 150 mg/dL (<200); Estimated Glomerular Filt Rate > 60; Glucose Random 96 mg/dL (60-115); HDL Cholesterol 53 mg/dL (>40); LDL Cholesterol Calculated 86 mg/dL (<100); Potassium 4.2 mmol/L (3.3-5.1); Sodium 139 mmol/L (135-145); Total Protein 7.5 g/dL (6.5-8.0); Triglycerides 58 mg/dL (<150)
[2024-04-12 12:37] LABS: Free T4 (Free Thyroxine) 0.93 ng/dL (0.71-1.85); Thyroid Stimulating Hormone 0.45 uIU/mL (0.32-4.0); Vitamin D 25-OH Total 15.8 ng/mL (>30)
[2024-04-12 13:48] LABS: CT PCR NOT DETECTED (Not Detect.); NG PCR NOT DETECTED (Not Detect.)
[2024-04-13 08:12] LABS: Hepatitis A Antibody IgG Nonreactive (Nonreactive); ~Hepatitis A Antibody IgG 0.26 S/CO (0.00-0.99)
[2024-04-13 08:22] LABS: HBS Num1 > 1000.00 mIU/mL (0-7.99); HBc Num1 0.09 S/CO (0.00-0.79); HBsAGNum1 0.37 S/CO (0.00-0.99); HIV AB/AG Nonreactive (Nonreactive); HIV Num 1 0.07 S/CO (0.00-0.99); Hepatitis B Core Antibody Nonreactive (Nonreactive); Hepatitis B Surface Antigen Negative (Negative); ~HepC Num1 0.09 S/CO (0.00-0.79); ~Hepatitis B Surface Antibody REACTIVE (Nonreactive); ~Hepatitis C Antibody Nonreactive (Nonreactive)
[2024-04-14 16:33] LABS: RPR Rapid Plasma Reagin NON-REACTIVE (NON-REACTIVE)
== END 2024-04-12 10:06 | disposition home or self-care (01) ==
LOC: HO.HHCX 10:05
PROVIDERS: Visit Provider Family Medicine
DX: M54.2 Cervicalgia (principal); M54.9 Dorsalgia, unspecified; G89.29 Other chronic pain; R00.2 Palpitations; F41.1 Generalized anxiety disorder; F10.29 Alcohol dependence with unspecified alcohol-induced disorder; G43.909 Migraine, unspecified, not intractable, without status migrainosus; D72.819 Decreased white blood cell count, unspecified; R79.89 Other specified abnormal findings of blood chemistry; Z11.3 Encounter for screening for infections with a predominantly sexual mode of transmission; Z11.4 Encounter for screening for human immunodeficiency virus [HIV]; Z00.00 Encounter for general adult medical examination without abnormal findings
CPT/HCPCS: 72040; 80048; 80061; 80076; 82306; 83036; 84439; 84443; 85025; 86592; 86704; 86706; 86708; 86803; 87340; 87389; 87491; 87591

== ENCOUNTER → 2024-04-12 10:07 | Outpatient (BNV) | payer MEDICAID, SELFPAY | PROVIDERS: Visit Provider Radiology Diagnostic Radiology | DX: M50.33 Other cervical disc degeneration, cervicothoracic region (principal) | CPT/HCPCS: 72040 ==

== ENCOUNTER 2024-04-12 10:31 | Outpatient (REF) | payer MEDICAID, SELFPAY ==
--- OUTSIDE RECORDS SUMMARY | 2024-04-12 11:20 | XMS_ITS | Encounter Summary ---
Author Organization [employer] Address [address] [place] [address] Care Team Providers Care Slab Polisher Name Role Phone SmithaPao fuentes Primary Care Provider + [phone] Encounter Details Date Type Department Care Team [...] Description 05/10/2024 10:30 AM EST Office Visit [facility] [address] [place] [address] Meet Patiño DDS [address] [place] [address] documented as of this encounter Visit Diagnoses Not on filedocumented in this encounter Additional Health Concerns Assessment Noted Time PHQ-9 Depression Total Score: 9 10/27/19 10:53 AM EDT documented as of this encounter Care Teams Slab Polisher Relationship Specialty Start Date End Date Pao Aden DO [address] [place] [address] PCP - General Family Medicine 03/10/18 Adamaris Gilbert Hematology Nurse EducatorElectrotype Servicer 05/16/23 Adamaris Gilbert Hematology Nurse EducatorElectrotype Servicer 02/27/24 documented as of this encounter
--- OUTSIDE RECORDS SUMMARY | 2024-04-12 11:20 | XMS_ITS | Clinical Summary ---
Author Organization [employer] Address [address] [place] [address] Care Team Providers Care Sergeant Of Officers Name Role Phone MarkiePao Primary Care Provider + [phone] Allergies Active Allergy Reactions Criticality Noted Date Comments Ibuprofen Hives,Other Low 07/09/2022 Pt presented to [facility] on d/t allergic reaction to ibuprofen [...] sx -LFTs nml NOV 2022 -referred for [facility] [place] -review naltrexone use next visit -he [...] Department Care Team Description 04/12/2024 Orders Only [facility] [address] [place] [address] Pao Aden DO 04/06/2024 Telephone [facility] ADULT DENTAL [address] [place] [address] Meet Patiño DDS 04/05/2024 10:45 AM EST Office Visit [facility] [address] [place] [address] Pao Aden DO Generalized anxiety disorder (Primary Dx); Palpitations; Alcohol dependence with unspecified alcohol-induced disorder (CMS/HCC); Chronic migraine; Leukopenia, unspecified type; Low TSH level; Chronic neck and back pain; Epigastric pain; Healthcare maintenance; Frequent headaches 04/05/2024 Travel 03/22/2024 9:30 AM EST Office Visit [facility] ADULT DENTAL [address] [place] [address] Meet Patiño DDS Odontalgia (Primary Dx); Dental caries extending into pulp 02/27/2024 Telephone [facility] [address] [place] [address] 35168 Pao Aden DO Care Coordination (ICP ) 02/22/2024 Refill [facility] [address] [place] [address] Dane Perez MD from Last 3 Months [...] 05/10/2024 10:30 AM EST Office Visit [facility] ADULT DENTAL [address] [place], [place] [phone] Meet Patiño, DDS [address] [place] [address] Health Maintenance Due Date Last Done Comments [...] AM EST Narrative 04/12/2024 10:42 AM EST ?[facility] ?[address] ?[place] [address] ?XRay Report ? Signed ? Patient: Mark Moore ?MR#: [id number] ? : 1985 ?Acct:[id number] ? Age/Sex: 38 / M ?ADM Date: 04/12/24 ? Loc: HO.HHCX ? Attending Dr: Pao Aden DO ? Ordering Physician: Pao Aden DO ?? Date of Service: 04/12/24 ?? Procedure(s): XR cervical spine 3V ?? Accession Number(s): [id number] ? cc: Pao Aden DO ? EXAMINATION: [...] DD/ 1007 ? TD/TT: 04/12/24 1020 ? Filter Tank Operator: ? Procedure Note Jaydenolviergenevaeddie, Moses - 04/12/2024 [place] [address] XRay Report Signed Patient: Anabella Moore#: [id number] : 1985Acct:[id number] Age/Sex: 38 / MADM Date: 04/12/24 Loc: HO.HHCX Attending Dr: Pao Aden DO Ordering Physician: Pao Aden DO Date of Service: 04/12/24 Procedure(s): XR cervical spine 3V Accession Number(s): [id number] cc: Pao Aden DO EXAMINATION: XR CERVICAL [...] 04/12/24 1039 DD/ 1007 TD/TT: 04/12/24 1020 Filter Tank Operator: us Pao Aden DO IMG XR PROCEDURES Final Resu lt * HIV Ab/Ag ([facility]) (11/28/2022 10:55 AM EDT) HIV AB/AG Nonreactive Nonreactive [facility] Comment:HIV-1 p24 Ag and/or HIV-1/HIV-2 Ab not detected.A test result that is nonreactive does not exclude thepossibility of exposure to or infection with HIV-1 and/orHIV-2. Nonreactive results in this assay for individualswith prior exposure to HIV-1 and/or HIV-2 may be due toantigen and antibody levels that are below the limit ofdetection of this assay.The [employer] HIV Ag/Ab Combo assay result andsupplemental assay results should be interpreted inconjunction with the patient's clinical presentation,history and other laboratory results. If the results areinconsistent with clinical evidence, additional testing issuggested to confirm the result. 11/28/2022 10:5 5 AM EDT 11/28/2022 1:00 PM EDT us Pao Aden DO LAB BLOOD ORDERABLES Final R esult [facility] [address] [place] [address] [phone] * Hepatitis C Antibody with Reflex to HCV, RNA, Quantitative, Real-Time PCR (11/28/2022 10:55 AM EDT) Hepatitis C Antibody Nonreactive Nonreactive [facility] Comment:Antibodies to HCV no t detected; does not exclude early acuteHCV infection. 11/28/2022 10:5 5 AM EDT 11/28/2022 1:00 PM EDT us Pao Aden DO LAB BLOOD ORDERABLES Final R esult Performing Organization Address [facility] Co de Phone Number [facility] [address] [place] [address] [phone] * Lipid Panel, Standard (11/28/2022 10:55 AM EDT) Triglycerides 71 <150 mg/dL [facility] Comment:Desirable Triglyceri de: less than 150 mg/dLBorderline High Triglyceride 150-199 mg/dLHigh Triglyceride: 200-499 mg/dLVery High Triglyceride: greater than or equal to 5OO mg/dL Cholesterol 150 <200 mg/dL [facility] Comment:Desirable Cholestero l: less than 200 mg/dLBorderline High Cholesterol: 200-239 mg/dLHigh Cholesterol: greater than 239 mg/dL LDL Cholesterol Calculated 75 <100 mg/dL [facility] Comment:Desirable LDL: less than 100 mg/dLNear Optimal/Above Optimal LDL: 110- 129 mg/dLBorderline High LDL: 130-159 mg/dLHigh LDL: 160-189 mg/dLVery High LDL: greater than or equal to 190 mg/dL HDL Cholesterol 61 >40 mg/dL [facility] Comment:Desirable HDL: great er than 40 mg/dL Note: This HDL assay may give artificially low results in patients with liver disease. Blood Venous blood specimen / Unknown 11/28/2022 10:55 AM EDT 11/28/2022 1:00 PM EDT us Pao Aden DO LAB BLOOD ORDERABLES Final R esult Performing Organization Address City/[facility]/ZIP Co de Phone Number [facility] [address] [place] [address] [phone] from Last 3 Months or Most Recently Relevant to Health Maintenance [place] Care Teams Sergeant Of Officers Relationship Specialty Start Date End Date Pao Aden DO [address] [place] [phone] PCP - General Family Medicine 03/10/18 Adamaris Gilbert Purchasing CoordinatorCase Management Specialist 05/16/23 Adamaris Gilbert Purchasing CoordinatorCase Management Specialist 02/27/24
--- OUTSIDE RECORDS SUMMARY | 2024-04-12 11:20 | XMS_ITS | Encounter Summary ---
Author Organization [employer] Address [address] [facility] [address]t [place] [address] Care Team Providers Care Tennis Racket Repairer Name Role Phone MarkiePao Primary Care Provider + [phone] Reason for Visit * Reason Comments Dental Pain Patient thinks that he has an infection Encounter Details Date Type Department Care Team ([facility] st Contact Info) Description 03/22/2024 9:30 AM EST Office Visit [facility] ADULT DENTAL [address] [place] [address] Meet Patiño DDS [address] [place] [address] Odontalgia (Primary Dx); Dental caries extending into [...] Timeout Time: 923 (Dental Emergency exam) Location: [facility] Tooth: Maxilla, Mandible, and #2 Procedure: X-rays and Emergency Verified the above with patient, therapeutic recreation assistant, and provider. Confirmed via patient's chart, intraorally and by radiographs. Scissors Sharpener: not applicable Chief Complaint Patient presents with [...] Exo # 2 ONLY per pt request Amusement Ride Operator: Denise Bennett Dentist: Meet Patiño DDS documented in this encounter Plan of Treatment Upcoming Encounters Date Type Department Care Team (Late st Contact Info) Description 05/10/2024 10:30 AM EST Office Visit [facility] ADULT DENTAL [address] [place] [address] Meet Patiño DDS [address] [place] [address] Scheduled Orders Name Type Priority Associated Diagnoses Orde r Schedule 2 2 EXTRACTION, ERUPTED TOOTH REQUIRING REMOVAL OF BONE AND/OR SECTIONING OF TOOTH, AND INCLUDING ELEVATION OF MUCOPERIOSTEAL FLAP IF INDICATED Dental Routine [address] [facility] 03/22/2024 3 3 EXTRACTION, ERUPTED TOOTH OR EXPOSED ROOT (ELEVATION AND/OR FORCEPS REMOVAL) Dental Routine [address] [facility] 03/22/2024 31 31 EXTRACTION, ERUPTED TOOTH REQUIRING REMOVAL OF BONE AND/OR SECTIONING OF TOOTH, AND INCLUDING ELEVATION OF MUCOPERIOSTEAL FLAP IF INDICATED Dental Routine [address] [facility] 03/22/2024 32 32 EXTRACTION, ERUPTED TOOTH [...] documented as of this encounter Care Teams Tennis Racket Repairer Relationship Specialty Start Date End Date Pao Aden DO [address] [place] [phone] PCP - General Family Medicine 03/10/18 Adamaris Gilbert Metal TurnerMarine Steamfitter 05/16/23 Adamaris Gilbert Metal TurnerMarine Steamfitter 02/27/24 documented as of this encounter
--- OUTSIDE RECORDS SUMMARY | 2024-04-12 11:20 | XMS_ITS | Encounter Summary ---
Author Organization [employer] Address [address] [place] [address] Care Team Providers Care Digital Media Intern Name Role Phone Pao Aden DO Primary Care Provider + [phone] Encounter Details Date Type Department Care Team ([facility] st Contact Info) Description 06/10/2023 Telephone [facility] MED[facility]INE [address] [place] [address] Pao dAen DO [address] [place] [address] Social History Tobacco Use Types Packs/Day Years [...] Description 05/10/2024 10:30 AM EST Office Visit [facility] ADULT DENTAL [address] [place], [place] [phone] Meet Patiño DDS [address] [place] [address] documented as of this encounter Visit Diagnoses Not on filedocumented in this encounter Additional Health Concerns Assessment Noted Time PHQ-9 Depression Total Score: 7 05/11/19 23 9:17 AM EST documented as of this encounter Care Teams Digital Media Intern Relationship Specialty Start Date End Date Pao Aden DO [address] [place], [place] [phone] PCP - General Family Medicine 03/10/18 Adamaris Gilbert Cloth Dyeing Range TenderGarage Door Service Technician 05/16/23 Adamaris Gilbert Cloth Dyeing Range TenderGarage Door Service Technician 02/27/24 documented as of this encounter
--- OUTSIDE RECORDS SUMMARY | 2024-04-12 11:20 | XMS_ITS | Encounter Summary ---
Author Organization [email or web address] Address [address] [place] [address] Care Team Providers Care Weblogic Developer Name Role Phone Pao Aden DO Primary Care Provider + [phone] Encounter Details Date Type Department Care Team ([facility] Contact Info) Description 04/06/2024 Telephone [facility] ADULT DENTAL [address] [place] [address] Meet Patiño DDS [address] [place] [address] Social History Tobacco Use Types Packs/Day Years [...] Description 05/10/2024 10:30 AM EST Office Visit [facility] ADULT DENTAL [address] [place] [address] Meet Patiño DDS [address] [place] [address] documented as of this encounter Visit Diagnoses Not on filedocumented in this encounter Additional Health Concerns Assessment Noted Time PHQ-9 Depression Total Score: 9 10/27/19 24 10:53 AM EDT documented as of this encounter Care Teams Weblogic Developer Relationship Specialty Start Date End Date Pao Aden DO [address] [place] [address] PCP - General Family Medicine 03/10/18 Adamaris Gilbert Seo ExpertEmergency Telecommunications Dispatcher 05/16/23 Adamaris Gilbert Seo ExpertEmergency Telecommunications Dispatcher 02/27/24 documented as of this encounter
--- OUTSIDE RECORDS SUMMARY | 2024-04-12 11:20 | XMS_ITS | Encounter Summary ---
Author Organization [employer] Address [address] [place] [address] Care Team Providers Care Rating Officer Name Role Phone Pao Aden DO Primary Care Provider + [phone] Encounter Details Date Type Department Care Team ([facility] st Contact Info) Description 04/12/2024 Orders Only [facility] MED[facility] [address] [place] [address] Pao Aden DO [address] [place] [address] Social History Tobacco Use Types Packs/Day Years [...] Description 05/10/2024 10:30 AM EST Office Visit [facility] ADULT DENTAL [address] [place] [address] Meet Patiño, ERICKSONS [address] [place] [address] documented as of this encounter Procedures Procedure Name Priority Date/Time Associated Diagnosis Comments XR CERVICAL SPINE 3V Routine 04/12/2024 10:07 AM EST documented in this encounter Results * XR CERVICAL SPINE 3V (04/12/2024 10:07 AM EST) Anatomical Region Laterality Modality Abdomen Radiographic Deysi ging 04/12/2024 10:0 7 AM EST Narrative 04/12/2024 10:42 AM EST ?[facility] ?[address] ?[place] [address] ?XRay Report ? Signed ? Patient: Oscar,Mark ?MR#: [id number] ? : 1985 ?Acct:[id number] ? Age/Sex: 38 / M ?ADM Date: /03/25 ? Loc: HO.HHCX ? Attending Dr: Pao Aden DO ? Ordering Physician: Pao Aden DO ?? Date of Service: 04/12/24 ?? Procedure(s): XR cervical spine 3V ?? Accession Number(s): [id number] ? cc: Pao Aden DO ? EXAMINATION: [...] signed by Ousmane Ballesteros MD in OV> ?04/12/24 1039 ? DD/ 1007 ? TD/TT: 04/12/24 1020 ? Highway Maintenance Worker: ? Procedure Note Moses Alejo - 04/12/[address] [address] XRay Report Signed Patient: Anabella Moore#: [id number] : 1985Acct:[id number] Age/Sex: 38 / MADM Date: 04/12/24 Loc: HO.HHCX Attending Dr: Pao Aden DO Ordering Physician: Pao Aden DO Date of Service: 04/12/24 Procedure(s): XR cervical spine 3V Accession Number(s): [id number] cc: Pao Aden DO EXAMINATION: XR CERVICAL [...] by: Ousmane Ballesteros MD 04/12/2024 10:39 AM [facility] Dictated By: Ousmane Ballesteros MD Signed By: <Electronically signed by Ousmane Ballesteros MD in OV> 04/12/24 1039 DD/ 1007 TD/TT: 04/12/24 10[address] Maintenance Worker: Pao Aden DO IMG XR PROCEDURES Final Resu lt documented in this encounter Visit Diagnoses Not on filedocumented in this encounter Additional Health Concerns Assessment Noted Time PHQ-9 Depression Total Score: 9 10/27/19 10:53 AM EDT documented as of this encounter Care Teams Rating Officer Relationship Specialty Start Date End Date Pao Aden DO [address] [place] [phone] PCP - General Family Medicine 03/10/18 Adamaris Gilbert Ball MakerContamination Consultant 05/16/23 Adamaris Gilbert Ball MakerContamination Consultant 02/27/24 documented as of this encounter
--- OUTSIDE RECORDS SUMMARY | 2024-04-12 11:20 | XMS_ITS | Encounter Summary ---
Author Organization [employer] [facility] Address [address] 7[address] [place] [address] Care Team Providers Care Grapple Yarder Operator Name Role Phone Pao Aden DO Primary Care Provider + [phone] Reason for Referral * Neurology (Routine) - Authorized Specialty Diagnoses / Procedures Referred By Clare t Referred To Contact Diagnoses Chronic neck and back pain Procedures Nerve conduction test Pao Aden DO [address] [place] [address] Phone: tel: fax: [address] Phone: tel: fax: Referral ID Status Reason Start Date Expiration Date V isits Requested Visits Authorized [id number] Authorized 04/05/2024 04/05/2025 1 1 * Neurology (Routine) - Authorized Specialty Diagnoses / Procedures Referred By Contac t Referred To Contact Diagnoses Chronic neck and back pain Procedures EMG Pao Aden DO [address] [place] [address] Phone: tel: fax: [address] Phone: tel: fax: Referral ID Status Reason Start Date Expiration Date V isits Requested Visits Authorized [id number] Authorized 04/05/2024 04/05/2025 1 1 * Consultation (Routine) - Pending Review Specialty Diagnoses / Procedures Referred By Clare rocha Referred To Contact Physical Therapy Diagnoses Chronic neck and back pain Pao Aden DO [address] [place] [address] Phone: tel: fax: Referral ID Status Reason Start Date Expiration Date Visits Requested Visits Authorized [id number] Pending Review Specialty Services Required 04/05/2024 04/05/2025 1 1 Encounter Details Date Type Department Care Team (Late st Contact Info) Description 04/05/2024 10:45 AM EST Office Visit [facility] MEDICINE [address] [place] [address] Pao Aden DO [address] [place] [phone] Generalized anxiety disorder (Primary Dx); Palpitations; Alcohol [...] 05/10/2024 10:30 AM EST Office Visit [facility] ADULT DENTAL [address] [place] [address] Meet Patiño DDS [address] [place] [address] Scheduled Orders Name Type Priority Associated Diagnoses [...] documented as of this encounter Care Teams Grapple Yarder Operator Relationship Specialty Start Date End Date Pao Aden DO [address] [place] [address] PCP - General Family Medicine 03/10/18 Adamaris Gilbert Prevention RnTrain Attendant 05/16/23 Adamaris Gilbert Prevention RnTrain Attendant 02/27/24 documented as of this encounter
== END 2024-04-12 10:32 | disposition home or self-care (01) ==
LOC: HO.HHCL 10:31
PROVIDERS: Visit Provider Family Medicine
DX: Z13.89 Encounter for screening for other disorder (principal)

== ENCOUNTER 2024-04-13 05:48 | Outpatient (REF) | payer MEDICAID, SELFPAY | END 2024-04-13 05:49 | disposition home or self-care (01) | LOC: HO.NEURO 05:48 | PROVIDERS: PCP Family Medicine; Visit Provider Family Medicine | DX: Z13.89 Encounter for screening for other disorder (principal) ==

== ENCOUNTER 2025-02-05 17:08 | Emergency (ER) | payer MEDICAID, SELFPAY ==
--- NOTE | 2025-02-05 17:09 | ECG_ITS ---
Test Reason : CP Blood Pressure : */* mmHG Vent. Rate : 91 BPM Atrial Rate : 91 BPM P-R Int : 122 ms QRS Dur : 88 ms QT Int : 348 ms P-R-T Axes : 77 61 56 degrees QTcB Int : 428 ms Normal sinus rhythm with sinus arrhythmia Normal ECG When compared with ECG of 24-Sep-2022 02:09, No significant change was found Referred By: Susana Cheng Electronically Signed By: GAURANG RAMIREZ
[2025-02-05 17:22] VITALS: BP 132/60; PULSE 91; RESP 20; TEMP 37.1; O2SAT 99; BMI 21.9
--- NOTE | 2025-02-05 17:22 | ED.GENADULT ---
HPI - General Adult General Chief complaint: Chest Pain Stated complaint: chest pain/fast heart rate Time Seen by Provider: 02/05/25 20:41 History of Present Illness ED Provider: SHALINI HPI narrative: 39-year-old male with anxiety disorder and previous panic. Came up previous two-day halter monitor without events with recurrent palpitations. Denies any chest pain. Despite triage note, no your eye symptoms, cough, diaphoresis. Sounds like an abrupt onset of non-exertional rapid palpitations. To do not feel irregular or skipping beats. No drugs or alcohol or toxic habits or withdrawal symptomatology. Symptoms result on their own. No leg swelling or recent travel in the history of DVT or thyroid disorder known to him. He has prescribed hydroxyzine for previous similar episodes that are recurrent. Related Data Home Medications ?Medication ?Instructions ?Recorded ?Confirmed acetaminophen 500 mg tablet 1,000 mg PO Q6H PRN fever 05/06/23 05/06/23 chlordiazepoxide HCl 25 mg capsule 50 mg PO Q8H PRN alcohol withdrawal 05/06/23 05/06/23 fluoxetine 20 mg capsule 20 mg PO DAILY 05/06/23 05/06/23 hydroxyzine pamoate 25 mg capsule 25 mg PO TID PRN anxiety 05/06/23 05/06/23 Previous Rx's ?Medication ?Instructions ?Recorded epinephrine 0.3 mg/0.3 mL 0.3 mg (0.3 mL) IM Q4H PRN 07/09/22 injection, auto-injector (EpiPen) anaphylaxis #2 ea Allergies Allergy/AdvReac Type Severity Reaction Status Date / Time ibuprofen Allergy Hives Verified 02/05/25 17:26 [facility] Past Medical History Medical History Migraine Chronic back pain Depression Anxiety Agoraphobia Surgical History Hx of removal of cyst Family History Family History Father No problems noted. Mother HTN (hypertension) Social History Social History Alcohol intake: current Alcohol intake frequency: a few times a month Alcohol type: beer Smoked in Last 30 Days: Yes Use of substances other than those prescribed or required for medical reasons: No Substance Use Type: Marijuana Advance Directives: No Advance Directives Information Provided: No Do you have a plan to hurt others: No Plan Physical Exam ED Exam Exam: EXAM: Gen: Alert, awake, well appearing, well hydrated. Head: Atraumatic Eyes: Anicteric, Normal conjunctiva. ENT: Moist mucosa, no pallor. Neck: Supple. Respiratory: Breathing comfortably, No distress.Clear to auscultation bilaterally, symmetric chest expansion, No wheeze, rales, ronchi. Cardiovascular: Regular rate and rhythm. No murmurs or rub. Well perfused periphery, warm extremities. No edema. Abdominal: Soft, no objective distension. No palpable masses or obvious organomegaly. No focal tenderness, no guarding, no rebound tenderness or other peritoneal findings. : No flank tenderness. Neuro: Alert. Gross movement of all extremities intact. Vital signs: See flowsheet Vital Signs: Vital Signs - 24 hr 02/05/25 17:22 02/05/25 21:14 Temperature 98.8 F 98.5 F Pulse Rate 91 99 Respiratory Rate 20 16 Blood Pressure 132/60 131/67 Pulse Oximetry 99 100 Oxygen Delivery Method Room Air Room Air BMI result Body Mass Index 21.9 Course Course Course Narrative: This is a Rapid Medical Examination (RME) performed by Elizabeth Cheng PA-C in triage. Full HPI, ROS, assessment and treatment plan per primary provider in the Main ED. Hx: 39 yo M here for eval of palpitations, chest pain, dizziness which began after eating dinner tonight. hx anxiety - feels different. reports watch showed his HR was 130. 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 Plan: labs, ekg Medical Decision Making Medical Decision Making MDM Narrative: 39 year old male with prior presumed panic disorder and workup that was unremarkable for recurrent palpitations with a similar presentation today completely resolved by the time I evaluated him. He's awake, alert, well appearing, not anxious. He has no psychosis, no clinical symptoms of an acute toxidrome. His heart rate's regular with a normal reassuring cardiovascular exam. ECG is reassuring. See interpretation below. Presumed recurrent rapid palpitations certainly could be a rapid dysrhythmia such as SVT or even a FIB less likely though. He seems to understand and have good insight on his own anxiety and feels this is an anxiety attack today. I did strongly encourage him to seek a longer event monitoring possibly up to one month and outpatient echocardiogram which he's agreeable to. Differential Diagnosis Differential Diagnoses: The differential diagnosis associated with the presentation includes Electrolyte derangement, thyroid disorder, anxiety, palpitations, SVT or other transient dysrhythmia. Lab Data MDM Lab Attestation statement: I reviewed the patient's lab results. 02/05/25 18:09 02/05/25 18:09 Labs: Lab Results 02/05/25 02/05/25 Range/Units 18:09 21:20 WBC 3.9 L (4.8-10.8) X10*3/uL RBC 4.96 (4.60-5.80) X10*6/uL Hgb 14.4 (14.0-18.0) g/dl Hct 42.5 (42.0-52.0) % MCV 85.7 (80.0-98.0) fL MCH 29.0 (27.0-33.0) pg MCHC 33.9 (31.0-36.0) g/dl RDW 12.1 (11.0-16.0) % Plt Count 210 (160-400) X10*3/uL MPV 10.6 (9.4-12.4) fL Immature Gran % (Auto) 0.3 (0.0-0.4) % Neut % (Auto) 52.5 (45-73) % Lymph % (Auto) 38.1 (20-40) % [place] % (Auto) 7.3 (2-11) % Eos % (Auto) 1.0 (0-4) % Baso % (Auto) 0.8 (0-2) % Lymph # (Auto) 1.5 (1.2-4.9) X10*3/uL [place] # (Auto) 0.3 (0.1-1.2) X10*3/uL Eos # (Auto) 0.0 (0.0-0.4) X10*3/uL Baso # (Auto) 0.0 (0.0-0.2) X10*3/uL Abs Immat Gran (auto) 0.01 (0.00-0.03) X10*3/uL Absolute Neuts (auto) 2.0 (2.0-8.3) x10*3/uL Absolute Nucleated RBC 0.000 (0.0-0.012) X10*3/uL Nucleated RBC % (auto) 0.0 (0.0-0.2) /100WBC Sodium 143 (135-145) mmol/L Potassium 3.7 (3.3-5.1) mmol/L Chloride 110 H (96-108) mmol/L Carbon Dioxide 24 (22-29) mmol/L Anion Gap 13 (12-20) BUN 10 (9-16) mg/dL Creatinine 0.95 (0.5-1.4) mg/dL Estim Creat Clear Calc 81.1 Estimated GFR > 60 Random Glucose 97 (60-115) mg/dL Calcium 9.3 (8.4-10.2) mg/dL Magnesium 1.9 (1.6-2.6) mg/dL Total Bilirubin 0.6 (0.0-1.0) mg/dL AST 31 (5-37) U/L ALT 33 (0-40) U/L Alkaline Phosphatase 61 (39-117) U/L Troponin I High Sens < 2.7 < 2.7 (<3.5-35.0) ng/L Total Protein 6.5 (6.5-8.0) g/dL Albumin 4.2 (3.5-5.0) g/dL TSH 0.46 (0.32-4.0) uIU/mL Independent Interpretation I performed an independent interpretation of an: EKG Interpretation: Sinus rhythm. Normal rate, normal intervals. QTC below 500, no ischaemia. No shortened PA. Discharge Plan Discharge Clinical Impression: Heart palpitations Patient Disposition: Home, Self-Care Instructions: Heart Palpitations (DC) Additional Instructions: Call your primary doctor reach out for potential longer Holter monitor. Reassuring lab workup ECG and monitoring in the emergency department for palpitations Prescriptions: No Action epinephrine [EpiPen] 0.3 mg/0.3 mL auto-injector 0.3 mg IM Q4H PRN (Reason: anaphylaxis) Qty: 2 0RF chlordiazepoxide HCl 25 mg capsule 50 mg PO Q8H PRN (Reason: alcohol withdrawal) Rx Instructions: day 1 take 50 mg b.i.d.. Day 2 take 25 mg every 6 hours. states 3 take 25 mg b.i.d. day 4 take 25 mg at bedtime acetaminophen 500 mg tablet 1,000 mg PO Q6H PRN (Reason: fever) hydroxyzine pamoate 25 mg capsule 25 mg PO TID PRN (Reason: anxiety) fluoxetine 20 mg capsule 20 mg PO DAILY Interventions: ED Discharge Assessment Last Done: 02/05/25 23:08 Discharge Date/Time: 02/05/25 23:09 Print Language: Bhutanese
[2025-02-05 18:14] LABS: MANUAL DIFF FLAG NO
[2025-02-05 18:15] LABS: Hematocrit 42.5 % (42.0-52.0); Hemoglobin 14.4 g/dl (14.0-18.0); Imm Gran Abs Auto 0.01 X10*3/uL (0.00-0.03); Imm Gran Pct Auto 0.3 % (0.0-0.4); Lymphocytes Absolute Auto 1.5 X10*3/uL (1.2-4.9); Mean Corpuscular HGB Conc 33.9 g/dl (31.0-36.0); Mean Corpuscular Hemoglobin 29.0 pg (27.0-33.0); Mean Corpuscular Volume 85.7 fL (80.0-98.0); NRBC Abs Auto 0.000 X10*3/uL (0.0-0.012); NRBC Pct Auto 0.0 /100WBC (0.0-0.2); Platelet Count 210 X10*3/uL (160-400); Red Blood Count 4.96 X10*6/uL (4.60-5.80); White Blood Count 3.9 X10*3/uL (4.8-10.8)
[2025-02-05 18:31] LABS: Alanine Aminotransferase 33 U/L (0-40); Albumin Level 4.2 g/dL (3.5-5.0); Alkaline Phosphatase 61 U/L (39-117); Anion Gap 13 (12-20); Aspartate Amino Transferase 31 U/L (5-37); Blood Urea Nitrogen 10 mg/dL (9-16); Calcium 9.3 mg/dL (8.4-10.2); Carbon Dioxide 24 mmol/L (22-29); Chloride 110 mmol/L (96-108); Creatinine Clr Calc Pharmacy 81.1; Estimated Glomerular Filt Rate > 60; Magnesium 1.9 mg/dL (1.6-2.6); Potassium 3.7 mmol/L (3.3-5.1); Sodium 143 mmol/L (135-145); Total Protein 6.5 g/dL (6.5-8.0)
[2025-02-05 18:38] LABS: Troponin-I High Sensitivity < 2.7 ng/L (<3.5-35.0)
--- OUTSIDE RECORDS SUMMARY | 2025-02-05 20:37 | XMS_ITS | Encounter Summary ---
Author Organization [employer] Address [address] [place] [address] Care Team Providers Care Exhibition Carver Name Role Phone Pao Aden DO Primary Care Provider + [phone] Encounter Details Date Type Department Care Team ([facility] st Contact Info) Description 06/10/2023 Telephone [facility] MEDICINE [address] [place] [address] Pao Aden DO [address] [place] [address] Social History Tobacco Use Types Packs/Day Years [...] the past 12 months, has t he [employer], oil or water company threatened to shut [...] Care Team (Late st Contact Info) Description 03/31/2025 9:00 AM EST Office Visit [facility] ADULT DENTAL [address] [place] [address] Meet Patiño DDS [address] [place] [address] documented as of this encounter Visit Diagnoses Not on filedocumented in this encounter Additional Health Concerns Assessment Noted Time PHQ-9 Depression Total Score: 7 05/11/19 23 9:17 AM EST documented as of this encounter Care Teams Exhibition Carver Relationship Specialty Start Date End Date Pao Aden DO [address] [place] [address] PCP - General Family Medicine 03/10/18 Adamaris Gilbert Aircraft Line AssemblerMotel Front Desk Attendant 05/16/23 Adamaris Gilbert Aircraft Line AssemblerMotel Front Desk Attendant 02/27/24 documented as of this encounter
--- OUTSIDE RECORDS SUMMARY | 2025-02-05 20:37 | XMS_ITS | Encounter Summary ---
Author Organization [employer] Address [address] [place] [address] Care Team Providers Care Experimental Aircraft Mechanic Name Role Phone ArielPao baez Primary Care Provider + [phone] Reason for Visit * Reason Onset Date Comments bleeding extraction site 05/21/2024 Encounter Details Date Type Department Care Team ([facility] Contact Info) Description 05/21/2024 Telephone [facility] ADULT DENTAL [address] [place] [address] Meet Patiño DDS [address] [place] [address] bleeding extraction site Social History Tobacco Use Types Packs/Day Years [...] encounter Miscellaneous Notes * Telephone Encounter - Guillermina Kohli - 05/21/2024 1:31 PM EDT Patient called in with his girlfriend. He had appt this morning 8:30 for extraction and is still bleeding a lot. Contacted front elevator operator. Verified with provider. Dr. Patiño asked patient to come back into be seen again today. Girlfriend asked if they were going to give him anything for the pain. Explained that they would have to ask provider once they return back to the office. documented in this encounter Plan of Treatment Upcoming Encounters Date Type Department Care Team (Late st Contact Info) Description 03/31/2025 9:00 AM EST Office Visit [facility] ADULT DENTAL [address] [place] [address] Meet Patiño DDS [address] [place] [address] documented as of this encounter Visit Diagnoses Not on filedocumented in this encounter Additional Health Concerns Assessment Noted Time PHQ-9 Depression Total Score: 9 10/27/19 24 10:53 AM EDT documented as of this encounter Care Teams Experimental Aircraft Mechanic Relationship Specialty Start Date End Date Pao Aden DO [address] [place] [id number] PCP - General Family Medicine 03/10/18 Adamaris Gilbert Document Control SupervisorAssociate Theatre Professor 05/16/23 Adamaris Gilbert Document Control SupervisorAssociate Theatre Professor 02/27/24 documented as of this encounter
--- OUTSIDE RECORDS SUMMARY | 2025-02-05 20:37 | XMS_ITS | Clinical Summary ---
Author Organization [employer] Address [address] [facility] [address] [place] [address] Care Team Providers Care Certified Orthotist Name Role Phone Pao Aden Primary Care Provider + [phone] Allergies No known active allergies Medications * This document contains information received from the source organization and may not represent a complete record from that organization. hydrOXYzine pamoate (Vistaril) 25 MG capsule TAKE 1 CAPSULE BY MOUTH THREE TIMES DAILY NEEDED FOR ANXIETY OR FOR SLEEP 10/04/19 22 Active gabapentin (Neurontin) 100 MG capsule TAKE 1 CAPSULE BY MOUTH THREE TIMES DAILY NEEDED FOR ANXIETY 04/23/19 23 Active EPINEPHrine (Epipen) 0.3 MG/0.3ML injection syringe INJECT INTRAMUSCULARLY DIRECTED ON PACKAGE AND GO TO EMERGENCY ROOM 07/10/19 23 Active FLUoxetine (PROzac) 20 MG capsule Take 20 mg by mouth in the morning. 01/10/20 23 Active loratadine (Claritin) 10 MG tablet Take 1 tablet (10 mg) by mouth Once per day. 30 tablet 3 06/30/19 24 Active Additional Information Patient not taking.Reported on 12/27/2024 famotidine (Pepcid) 20 MG tablet TAKE 1 TABLET BY MOUTH TWICE DAILY 180 tablet 1 02/24/20 24 Active Additional Information Patient not taking.Reported on 05/27/2024 cholecalcifero l (Vitamin D-3) 50 MCG (1999 UT) capsule Take 1 capsule (50 mcg) by mouth Once per day. 90 capsule 3 04/14/19 25 026 Active Additional Information Patient not taking.Reported on 12/27/2024 amitriptyline (Elavil) 10 MG tablet Take 1 tablet (10 mg) by mouth at bedtime. 30 tablet 3 08/01/20 25 026 Active Additional Information Patient not taking.Reported on 12/27/2024 tiZANidine (Zanaflex) 2 MG tablet Take 1 tablet (2 mg) by mouth every 8 (eight) hours if needed for muscle spasms. 60 tablet 2 10/09/19 25 026 Active Additional Information Patient not taking.Reported on 12/27/2024 SUMAtriptan (Imitrex) 25 MG tabletIndicati ons:Frequent headaches Take 1 tablet (25 mg) by mouth 1 (one) time if needed for migraine. May repeat dose once in 2 hours if no relief. Do not exceed 2 doses in 24 hours. 9 tablet 1 10/09/19 Active Additional Information Patient not taking.Reported on 12/27/2024 acetaminophen (Tylenol 8 Hour) 650 MG ER tablet Take 1 tablet (650 mg) by mouth every 8 (eight) hours if needed for mild pain. Do not crush, chew, or split. 40 tablet 2 10/09/19 25 026 Active chlorhexidine (Peridex) 0.12 % solutionIndica tions:Dental infection Use 15 mL in the mouth or throat if needed for wound care for up to 14 days. 473 mL 12/26/19 025 Additional Information Patient not taking.Reported on 12/27/2024 ibuprofen 600 MG tabletIndicati ons:Dental infection Take 1 tablet (600 mg) by mouth 3 times daily. 90 tablet 12/26/19 025 Active Problems Problem Noted Date Diagnosed Date History of tooth extraction 05/27/2024 Periodontal disease 05/21/2024 Chronic neck and back pain 06/30/2023 Assessment [...] visit prn -continue imitrex prn -advised contact [facility] if NICE change or worsen Alcohol dependence 05/10/2022 Assessment & Plan (06/30/2023 2:18 PM EDT): With continued daily drinking, he denies any withdrawal sx -LFTs nml NOV 2022 -referred for abd [place] -review naltrexone use next visit -he [...] Problem Noted Date Diagnosed Date Resolved Date Dental abscess 05/07/2024 12/28/2024 Dental caries extending into pulp 03/22/2024 12/28/2024 Pain, dental 03/22/2024 12/28/2024 Anxiety 10/04/2022 10/04/2022 Heart palpitations 10/04/2022 3 Hyperthyroidism 10/04/2022 10/04/2022 Dysthymia 04/14/2017 02/12/2023 Encounters Date Type Department Care Team Description 12/27/2024 9:30 AM EDT Office Visit [facility] ADULT D[facility]AL [address] [place] [address] Meet Patiño DDS Periodontal disease (Primary Dx); Pain, dental 12/27/2024 Telephone [facility] MEDICINE [address] [place] [address] Pao Aden DO 12/25/2024 10:20 AM EDT Office Visit [facility] [address] [place] [address] Aaliyah Hobbs CNP Dental infection (Primary Dx) 12/25/2024 Travel from Last 3 Months Immunizations Immunization Administration Dates Next Due DTaP 02/09/1992, 8,03/24/1987,1986,1986 [...] is your housing situation today? I have housing today, but I am worried about losing housing in the future 10/08/[address] you li ve. Do you have problems with any of the following? Mold;Water leaks 10/08/2024 Food Insecurity Answer Date Recorded Within the past 12 months, y ou worried that your food would run out before you got money to buy more: Sometimes True 2024 Within the past 12 months,th e food you bought just didn't last and you didn't have enough money to get more: Sometimes True 10/08/2024 Transportation Answer Date Recorded In the past 12 months, has l ack of transportation kept you from medical appts, meetings, work or from getting things needed for daily living? Yes, it has kept me from medical appointments or getting medications. 10/08/2024 Utilities Answer Date Recorded In the past 12 months, has t he electric, gas, oil or water company threatened to shut off services in your home? No 10/08/2024 Depression Answer Date Recorded Patient Health Questionnaire-2 Score 2 10/27/2023 Internet Access Answer Date Recorded Internet Access Q1 Yes 10/08/2024 Internet Access Q2 Not on file 10/08/2024 Sex and Gender Information Value Date Recorded Sex Assigned at Male 01/07/2022 10:14 AM EDT Legal Sex Male 10:14 AM EDT Gender Identity Male 01/07/2022 10:14 AM EDT Sexual Orientation Straight 01/07/2022 10 :14 AM EDT Last Filed Vital Signs Vital Sign Reading Time Taken Comments Blood Pressure 100/70 12/27/2024 9:00 AM EDT Pulse 83 12/25/2024 9:41 AM EDT Temperature 37.2 C (98.9 F) 12/25/2024 9:41 AM EDT Respiratory Rate 21 12/25/2024 9:41 AM EDT Oxygen Saturation 97% 12/25/2024 9:41 AM EDT Inhaled Oxygen Concentration - - Weight 58.5 kg (129 lb) 12/25/2024 9:41 AM EDT Height 157.5 cm (5' 2 ) 12/25/2024 9:41 AM EDT Body Mass Index 23.59 12/25/2024 9:41 AM EDT Plan of Treatment Upcoming Encounters Date Type Department Care Team (Late st Contact Info) Description 03/31/2025 9:00 AM EST Office Visit [facility] ADULT D[facility]AL [address] [place] [address] Meet Patiño DDS [address] [place] [address] Health Maintenance Due Date Last Done Comments Dental Prophylaxis 1986 DTaP/Tdap/Td Vaccines (6 - Tdap) 09/22/1998 09/21/1998, 02/09/1992, 12/28/1987, Additional history exists Family Planning (PISQ) 2001 HPV Vaccines (1 - Male 3-dose series) 2001 Pneumococcal Vaccine: Pediatrics (0 to 5 Years) and At-Risk Patients (6 to 49) Years (1 of 2 - PCV) 2005 Dental Oral Exam 05/25/2021 11/24/2020 Dental X-Ray: Full Mouth 11/26/2023 021, 11/24/2020, 03/13/2020 Depression Monitoring 04/28/2024 10/27/2023, 024 COVID-19 Vaccine ( - season) 2024 Influenza Vaccine (#1) 2024 Alcohol/Substance Use Screening 04/05/2025 04/05/2024 Disability Screening 10/08/2025 10/08/2024 SDOH Screening 10/08/2025 10/08/2024 Tobacco Screening 12/27/2025 12/27/2024 Dental X-Ray: Bitewings 12/28/2025 12/28/19 25, 11/24/2020, 01/16/2015 Lipid Panel 04/12/2029 04/12/2024, 11/09, 03/08/2020 Zoster Vaccines (1 of 2) 2036 RSV Patients and Patients Aged 60 years or older (1 - 1-dose 75+ series) 2061 HIB Vaccines Completed 05/25/1988 IPV Vaccines Completed 02/09/1992, 12/09, 1986, Additional history exists Hepatitis B Vaccines Completed 05/05/2000, 09/21/1998, 10/27/1997 HIV Screening Completed 04/12/2024, 11/09, 03/08/2020 Hepatitis C Screening Completed 04/12/2024 , 11/28/2022, 03/08/2020 Hepatitis A Vaccines Aged Out No long er eligible based on patient's age to complete this topic Meningococcal B Vaccine Aged Out No l onger eligible based on patient's age to complete [...] Procedure Name Priority Date/Time Associated Diagnosis Comments TSH W/REFLEX TO FT4 Routine 02/05/2025 6 :09 PM EST HIGH SENSITIVITY TROPONIN I Routine 02/05/2025 6:09 PM EST MAGNESIUM Routine 02/05/2025 6:09 PM EST COMPREHENSIVE METABOLIC PANEL Routine 02/05/2025 6:09 PM EST CBC WITH AUTO DIFFERENTIAL Routine 02/05/2025 6:09 PM EST CASE PRESENTATION, DETAILED AND EXTENSIVE TREATMENT PLANNING Routine 12/27/2024 9:30 AM EDT LIMITED ORAL EVALUATION - PROBLEM FOCUSED Routine 12/27/2024 9:30 AM EDT BITEWING - SINGLE RADIOGRAPHIC IMAGE Routine 12/27/2024 9:30 AM EDT INTRAORAL - PERIAPICAL FIRST RADIOGRAPHIC IMAGE Routine 12/27/2024 9:30 AM EDT HEPATITIS C AB W/REFL TO HCV RNA, QN, PCR Routine 04/12/2024 10:36 AM EST Palpitations Generalized anxiety disorder Alcohol dependence with unspecified alcohol-induced disorder (CMS/HCC) Chronic migraine Leukopenia, unspecified type Low TSH level Chronic neck and back pain Healthcare maintenance HIV 1/2 ANTIGEN/ANTIBODY, FOURTH GENERATION W/RFL Routine 04/12/2024 10:36 AM EST Palpitations Generalized anxiety disorder Alcohol dependence with unspecified alcohol-induced disorder (CMS/HCC) Chronic migraine Leukopenia, unspecified type Low TSH level Chronic neck and back pain Healthcare maintenance LIPID PANEL, STANDARD Routine 04/12/2024 10:36 AM EST Palpitations Generalized anxiety disorder Alcohol dependence with unspecified alcohol-induced disorder (CMS/HCC) Chronic migraine Leukopenia, unspecified type Low TSH level Chronic neck and back pain Healthcare maintenance INTRAORAL - COMPLETE SERIES OF RADIOGRAPHIC IMAGES Routine 11/24/2020 12:00 AM EDT COMPREHENSIVE ORAL EVALUATION - NEW OR ESTABLISHED PATIENT Routine 11/24/2020 12:00 AM EDT from Last 3 Months or Most Recently Relevant to Health Maintenance Results * High Sensitivity Troponin I (02/05/2025 6:09 PM EST) [facility] TROPONIN I HIGH SENSITIVITY <2.7 <3.5 - 35.0 ng/L [facility] Comment:The [place] high sens itivity Troponin-I results should beused in conjunction with other diagnostic information suchas ECG, clinical observations and information, and patientsymptoms to aid in the diagnosis of AR. 02/05/2025 6:09 PM EST 02/05/2025 6:12 PM EST Generic External Data Provider LAB BLOOD ORDERAB LES Final Result Performing Organization Address [facility] [address]/ZIP Co de Phone Number [facility] [address] [place] [phone] * TSH with Reflex to Free T4 (02/05/2025 6:09 PM EST) [facility] TSH reflex Free T4 0.46 0.32 - 4.0 uIU/mL [facility] 02/05/2025 6:09 PM EST 02/05/2025 6:12 PM EST Generic External Data Provider LAB BLOOD ORDERAB LES Final Result Performing Organization Address [facility] [address]/[facility] Co de Phone Number [facility] [address] [place] [phone] * (ABNORMAL) CBC auto differential (02/05/2025 6:09 PM EST) [facility] White Blood Count 3.9(L) 4.8 - 10.8 X10*3/uL [facility] Red Blood Count 4.96 4.60 - 5.80 X10*6/uL [facility] Hemoglobin 14.4 14.0 - 18.0 g/dl [facility] Hematocrit 42.5 42.0 - 52.0 % [facility] Mean Corpuscular Volume 85.7 80.0 - 98.0 fL [facility] Mean Corpuscular Hemoglobin 29.0 27.0 - 33.0 pg [facility] Mean Corpuscular HGB Conc 33.9 31.0 - 36.0 g/dl [facility] Red Cell Distribution Width 12.1 11.0 - 16.0 % [facility] Platelet Count 210 160 - 400 X10*3/uL [facility] Mean Platelet Volume 10.6 9.4 - 12.4 fL [facility] Neutrophils Percent Auto 52.5 45 - 73 % [facility] Imm Gran Pct Auto 0.3 0.0 - 0.4 % [facility] Lymphocytes Percent Auto 38.1 20 - 40 % [facility] Monocytes Percent Auto 7.3 2 - 11 % [facility] Eosinophils Percent Auto 1.0 0 - 4 % [facility] Basophils Percent Auto 0.8 0 - 2 % [facility] NRBC Pct Auto 0.0 0.0 - 0.2 /100WBC [facility] Neutrophils Absolute Auto 2.0 2.0 - 8.3 x10*3/uL [facility] Imm Gran Abs Auto 0.01 0.00 - 0.03 X10*3/uL [facility] Lymphocytes Absolute Auto 1.5 1.2 - 4.9 X10*3/uL [facility] Monocytes Absolute Auto 0.3 0.1 - 1.2 X10*3/uL [facility] Eosinophils Absolute Auto 0.0 0.0 - 0.4 X10*3/uL [facility] Basophils Absolute Auto 0.0 0.0 - 0.2 X10*3/uL [facility] NRBC Abs Auto 0.000 0.0 - 0.012 X10*3/uL [facility] 02/05/2025 6:09 PM EST 02/05/2025 6:12 PM EST us Generic External Data Provider LAB BLOOD ORDERAB LES Final Result Performing Organization Address City/[facility] [address]/ZIP Co de Phone Number [facility] [address] [place] [address] [phone] * Magnesium (02/05/2025 6:09 PM EST) Pathologist [facility] Magnesium 1.9 1.6 - 2.6 mg/dL [facility] 02/05/2025 6:09 PM EST 02/05/2025 6:12 PM EST Generic External Data Provider LAB BLOOD ORDERAB LES Final Result Performing Organization Address [facility] [address]/[facility] Co de Phone Number [facility] [address] [place] [phone] * (ABNORMAL) Comprehensive Metabolic Panel (02/05/2025 6:09 PM EST) Pathologist [facility] Sodium 143 135 - 145 mmol/L [facility] Potassium 3.7 3.3 - 5.1 mmol/L [facility] Chloride 110(H) 96 - 108 mmol/L [facility] Carbon Dioxide 24 22 - 29 mmol/L [facility] Anion Gap 13 12 - 20 [facility] Urea Nitrogen (BUN) 10 9 - 16 mg/dL [facility] Creatinine, Serum 0.95 0.5 - 1.4 mg/dL [facility] Creatinine Clr Calc Pharmacy 81.1 [facility] Comment:eGFR (calculated fro m the MDRD study equation) and eCrCl(calculated from the Cockcroft-Gault equation) are based ondifferent parameters and may not yield comparable results.If eCrCl result is absurd, please check patient'sheight/weight. Estimated Glomerular Filt Rate >60 [facility] Comment:Chronic Kidney Disea se: Estimated GFR < 60 mL/min/1.63y7Pvssfi Kidney Disease: Estimated GFR < 15 mL/min/1.73m2 Glucose 97 60 - 115 mg/dL [facility] Calcium 9.3 8.4 - 10.2 mg/dL [facility] Bilirubin, Total 0.6 0.0 - 1.0 mg/dL [facility] Aspartate Amino Transferase 31 5 - 37 U/L [facility] Alanine Aminotransferase 33 0 - 40 U/L [facility] Total Protein 6.5 6.5 - 8.0 g/dL [facility] Albumin Level 4.2 3.5 - 5.0 g/dL [facility] Alkaline Phosphatase 61 39 - 117 U/L [facility] 02/05/2025 6:09 PM EST 02/05/2025 6:12 PM EST us Generic External Data Provider LAB BLOOD ORDERAB LES Final Result Performing Organization Address [facility] [address] [facility] Co de Phone Number [facility] [address] [place] [phone] * Hepatitis C Antibody with Reflex to HCV, RNA, Quantitative, Real-Time PCR (04/12/2024 10:36 AM EST) Hepatitis C Antibody Nonreactive Nonreactive [facility] Comment:Antibodies to HCV no t detected; does not exclude early acuteHCV infection. Blood Venous blood specimen / Unknown 04/12/2024 10:36 AM EST 04/12/2024 11:30 AM EST us Pao Aden DO LAB BLOOD ORDERABLES Final R esult Performing Organization Address City/[facility] [address]/ZIP Co de Phone Number [facility] [address] [place] [phone] [phone] * HIV-1/2 Antigen and Antibodies, Fourth Generation, with Reflexes (04/12/2024 10:36 AM EST) HIV AB/AG Nonreactive Nonreactive [facility] Comment:HIV-1 p24 Ag and/or HIV-1/HIV-2 Ab not detected.A test result that is nonreactive does not exclude thepossibility of exposure to or infection with HIV-1 and/orHIV-2. Nonreactive results in this assay for individualswith prior exposure to HIV-1 and/or HIV-2 may be due toantigen and antibody levels that are below the limit ofdetection of this assay.The [employer] HIV Ag/Ab Combo assay result andsupplemental assay results should be interpreted inconjunction with the patient's clinical presentation,history and other laboratory results. If the results areinconsistent with clinical evidence, additional testing issuggested to confirm the result. Blood Venous blood specimen / Unknown 04/12/2024 10:36 AM EST 04/12/2024 11:30 AM EST us Pao Aden DO LAB BLOOD ORDERABLES Final R esult [facility] [address] [place] [phone] * Lipid Panel, Standard (04/12/2024 10:36 AM EST) Triglycerides 58 <150 mg/dL [facility] Comment:Desirable Triglyceri de: less than 150 mg/dLBorderline High Triglyceride 150-199 mg/dLHigh Triglyceride: 200-499 mg/dLVery High Triglyceride: greater than or equal to 5OO mg/dL Cholesterol 150 <200 mg/dL [facility] Comment:Desirable Cholestero l: less than 200 mg/dLBorderline High Cholesterol: 200-239 mg/dLHigh Cholesterol: greater than 239 mg/dL LDL Cholesterol Calculated 86 <100 mg/dL [facility] Comment:Desirable LDL: less than 100 mg/dLNear Optimal/Above Optimal LDL: 110- 129 mg/dLBorderline High LDL: 130-159 mg/dLHigh LDL: 160-189 mg/dLVery High LDL: greater than or equal to 190 mg/dL HDL Cholesterol 53 >40 mg/dL [facility] Comment:Desirable HDL: great er than 40 mg/dL Note: This HDL assay may give artificially low results in patients with liver disease. Blood Venous blood specimen / Unknown 04/12/2024 10:36 AM EST 04/12/2024 11:30 AM EST us Pao Aden DO LAB BLOOD ORDERABLES Final R esult [facility] [address] [place], [place] [phone] from Last 3 Months or Most Recently Relevant to Health Maintenance [place] [facility] [address] MEDICAID STAND ADULT Care Teams Certified Orthotist Relationship Specialty Start Date End Date Pao Aden DO [address] [place] [phone] PCP - General Family Medicine 03/10/18 Adamaris Gilbert [employer] 05/16/23 Adamaris Gilbert Quality ControllerPlant Sprayer 02/27/24
[2025-02-05 21:14] VITALS: BP 131/67; PULSE 99; RESP 16; TEMP 36.9; O2SAT 100
[2025-02-05 21:51] LABS: Troponin-I High Sensitivity < 2.7 ng/L (<3.5-35.0)
[2025-02-05 23:03] VITALS: BP 117/71; PULSE 76; RESP 15; TEMP 37; O2SAT 100
[2025-02-05 23:08] VITALS: BP 117/71; PULSE 76; RESP 15; TEMP 37; O2SAT 100
== END 2025-02-05 23:09 | disposition home or self-care (01) ==
PROVIDERS: Physician Assistant Medical; Emergency Provider Emergency Medicine; PCP Family Medicine
DX: R00.2 Palpitations (principal); R07.9 Chest pain, unspecified; F41.9 Anxiety disorder, unspecified
CPT/HCPCS: 36415; 80053; 83735; 84443; 84484; 85025; 93005; 99283; 99285

== ENCOUNTER → 2025-02-05 17:09 | Outpatient (BNV) | payer MEDICAID, SELFPAY | PROVIDERS: Emergency Provider Emergency Medicine; PCP Family Medicine; Visit Provider Internal Medicine | DX: R07.9 Chest pain, unspecified (principal) | CPT/HCPCS: 93010 ==